=== PATIENT | male | born 1985 | race Hispanic/Latino ===

== ENCOUNTER 2017-08-08 17:22 | Inpatient (IN) | payer OTHER ==
[2017-08-08 17:22] VITALS: BMI 19.8
--- NOTE | 2017-08-08 18:16 | ED PDOC ---
Arrival/HPI - General Chief Complaint: Chest Pain Time Seen by Provider: 08/08/17 17:40 Historian: Patient - History of Present Illness Narrative History of Present Illness (Text): 08/08/17 18:12 A 31 year old male presents to the emergency department complaining of left sided chest pain approximately 30 minutes prior to arrival. Patient notes shortness of breath but denies any fever, chills, nausea, vomiting, abdominal pain or any other complaints. Patient denies history of pneumothorax. Time/Duration: 1/2 hour Symptom Course: Unchanged Quality: Other Context: Home Past Medical History - Provider Review Nursing Documentation Reviewed: Yes - Tetanus Immunization Tetanus Immunization: Unknown - Past Medical History Past Medical History: No Previous - Musculoskeletal/Rheumatological Other/Comment: Left Leg Sprain - Psychiatric Hx Depression: No Hx Emotional Abuse: No Hx Physical Abuse: No Hx Substance Use: No - Past Surgical History Past Surgical History: No Previous - Surgical History Other/Comment: Oral - Anesthesia Hx Anesthesia: Yes Hx Anesthesia Reactions: No Hx Malignant Hyperthermia: No - Suicidal Assessment Feels Threatened In Home Enviroment: No Family/Social History - Physician Review Nursing Documentation Reviewed: Yes Family/Social History: No Known Family HX Smoking Status: Light Smoker < 10 Cigarettes Daily Hx Alcohol Use: Yes Frequency of alcohol use: Socially Hx Substance Use: No Allergies/Home Meds Allergies/Adverse Reactions: Allergies No Known Allergies Allergy (Verified 11/05/16 12:48) Home Medications: Home Meds Medication Instructions Recorded Confirmed D-Methorphan/PE/Acetaminophen 236 ml PO PRN PRN 11/05/16 11/05/16 [Vicks Dayquil Cold & Flu 236 ml] Review of Systems - Physician Review All systems were reviewed & negative as marked: Yes - Review of Systems Constitutional: absent: Fevers, Night Sweats Respiratory: SOB Cardiovascular: Chest Pain Gastrointestinal: absent: Abdominal Pain, Nausea, Vomiting Physical Exam Vital Signs Reviewed: Yes Vital Signs Temp Pulse Resp BP Pulse Ox 08/08/17 20:28 72 16 106/69 99 08/08/17 19:06 88 20 128/82 99 08/08/17 18:25 93 H 17 131/79 98 08/08/17 17:34 92 H 20 121/83 100 08/08/17 17:22 98.5 F 73 18 127/77 98 Temperature: Afebrile Blood Pressure: Normal Pulse: Regular Respiratory Rate: Normal Appearance: Positive for: Non-Toxic, Uncomfortable Pain Distress: Moderate Mental Status: Positive for: Alert and Oriented X 3 - Systems Exam Head: Present: Atraumatic, Normocephalic Pupils: Present: PERRL Extroacular Muscles: Present: EOMI Conjunctiva: Present: Normal Mouth: Present: Moist Mucous Membranes Neck: Present: Normal Range of Motion Respiratory/Chest: Present: Respiratory Distress. No: Accessory Muscle Use Cardiovascular: Present: Regular Rate and Rhythm, Normal S1, S2. No: Murmurs Abdomen: Present: Normal Bowel Sounds. No: Tenderness, Distention, Peritoneal Signs Back: Present: Normal Inspection Upper Extremity: Present: Normal Inspection. No: Cyanosis, Edema Lower Extremity: Present: Normal Inspection. No: Edema Neurological: Present: GCS=15, CN II-XII Intact, Speech Normal Skin: Present: Warm, Dry, Normal Color. No: Rashes Psychiatric: Present: Alert, Oriented x 3, Normal Insight, Normal Concentration Medical Decision Making ED Course and Treatment: 08/08/17 18:12 Impression: A 31 year old male with left sided chest pain and shortness of breath. Differential Diagnosis included but are not limited to: Pneumothorax Plan: -- Chest xray -- EKG -- Labs -- Toradol -- Reassess and disposition Progress Notes: Case discussed with neurosurgical nurse practitioner, states he will evaluate patient at bedside. Report Date : 08/08/2017 18:35:59 Procedure: Chest xray Dictator : Ambar Cheney MD IMPRESSION: Hyperinflation. Right peritracheal opacity of unclear significance, possibly due to tortuous vasculature exaggerated by patient obliquity. 08/08/17 19:36 Case discussed with surgeon dehydrogenation supervisor Dr. Rodriguez, who refuses to accept patient to his service. Dr. Zelaya left prior to knowing this information. 08/08/17 20:[address] Cole managed by medical residents. ICU consult obtained dr. Moseley at bedside cleared for ICU 08/08/17 21:04 - Critical Care Critical Care Minutes: 45 minutes Narrative Critical Care (Text): 08/08/17 20:07 seen on arrival due to suspected pneumothorax chest x-ray revealed the same. Surgical consultation was obtained and the surgery residents put him in a 7 [place] chest tube at the fourth intercostal space. With good resolution of the chest tube I supervised doing conscious sedation using ketamine. An ICU consultation was obtained with Dr. Moseley. - Lab Interpretations Lab Results: 08/08/17 18:25 08/08/17 18:25 Lab Results 08/08/17 18:25: Sodium 140, Potassium 3.9, Chloride 105, Carbon Dioxide 23, Anion Gap 16, BUN 15, Creatinine 1.0, Est GFR ( Amer) > 60, Est GFR (Non- Af Amer) > 60, Random Glucose 88, Calcium 9.8 08/08/17 18:25: PT 11.0, INR 1.02 08/08/17 18:25: WBC 9.4, RBC 4.99, Hgb 14.2, Hct 41.5 L, MCV 83.2, MCH 28.5, MCHC 34.2, RDW 13.4, Plt Count 262, MPV 8.9, Gran % 50.7, Lymph % (Auto) 38.5 H , [place] % (Auto) 8.3 H, Eos % (Auto) 2.0, Baso % (Auto) 0.5, Gran # 4.78, Lymph # 3.6 H, [place] # 0.8 H, Eos # 0.2, Baso # 0.05 I have reviewed the lab results: Yes - RAD Interpretation Narrative RAD Interpretations (Text): 08/08/17 21:03 chest x-ray shows a small to moderate-sized pneumothorax on the left lung field. Post chest tube placement shows full inflation. Radiology Orders: 08/08/17 17:45 CHEST TWO VIEWS (PA/LAT) [RAD] Stat 08/08/17 18:53 X-RAY [CHEST PORTABLE] [RAD] Stat 08/09/17 06:00 CXR [CHEST PORTABLE] [RAD] DAILY 08/10/17 06:00 CXR [CHEST PORTABLE] [RAD] DAILY 08/11/17 06:00 CXR [CHEST PORTABLE] [RAD] DAILY - EKG Interpretation EKG Interpretation (Text): 08/08/17 20:17 no signifcant abnormalties. Interpreted by ED Physician: Yes Type: 12 lead EKG Comparison: No previous EKG avail. - Medication Orders Current Medication Orders: Acetaminophen (Tylenol 325mg Tab) 650 mg PO Q4 PRN PRN Reason: Fever >100.4 F Ketorolac Tromethamine (Toradol) 15 mg IVP Q4 PRN PRN Reason: Pain, severe (8-10) Oxycodone/Acetaminophen (Percocet 5/325 Mg Tab) 2 tab PO Q4 PRN PRN Reason: Pain, moderate (4-7) Stop: 08/11/17 20:01 Discontinued Medications Hydromorphone HCl (Dilaudid) 2 mg IVP STAT STA Stop: 08/08/17 18:23 Ketamine HCl (Ketalar) 100 mg IV ONCE ONE Stop: 08/08/17 18:54 Ketorolac Tromethamine (Toradol) 30 mg IVP STAT STA Stop: 08/08/17 18:14 Last Admin: 08/08/17 18:31 Dose: 30 mg MAR Pain Assessment Document 08/08/17 18:31 CONRAD (Rec: 08/08/17 18:34 [id number] Pain Reassessment Is this a pain reassessment? Yes Sleep Is patient sleeping during reassessment? No Presence of Pain Presence of Pain Yes Pain Scale Used Pain Scale Used Numeric Location Left, Right or Bilateral Left Pain Location Body Site Chest Description Description Sharp Intensity of Pain at present 10 IVP Administration Document 08/08/17 18:31 CONRAD (Rec: 08/08/17 18:34 [id number]) Charges for Administration # of IVP Administrations 1 - Procedure PROCEDURE NOTE (Text): 08/08/17 21:00 conscious sedation procedure: ASA class I and no medical issues and good anticipated oral airway Mallampati class. 50 mg of ketamine IV was given for procedural sedation chest tube. patient had short transient periods of apnea which responded to verbal stimuli, and no desaturations. patient was monitored during the procedure and tolerated the procedure well there were no major events no emergence phenomenon. - Scribe Statement The provider has reviewed the documentation as recorded by the Michael Smith Provider Scribe Attestation: All medical record entries made by the Scribe were at my direction and personally dictated by me. I have reviewed the chart and agree that the record accurately reflects my personal performance of the history, physical exam, medical decision making, and the department course for this patient. I have also personally directed, reviewed, and agree with the discharge instructions and disposition. Disposition/Present on Arrival - Present on Arrival Any Indicators Present on Arrival: No History of DVT/PE: No History of Uncontrolled Diabetes: No Urinary Catheter: No History of Decub. Ulcer: No History Surgical Site Infection Following: None - Disposition Have Diagnosis and Disposition been Completed?: Yes Diagnosis: Pneumothorax Disposition: HOSPITALIZED Disposition Time: 20:08 Patient Plan: Admission Patient Problems: Current Active Problems Problem Status Onset Pneumothorax Acute Condition: SERIOUS
[2017-08-08] MEDS ORDERED: HYDROmorphone 2 mg/ml ISec IVP STA (18:22)
[2017-08-08] MEDS ORDERED: Ketamine 10 mg/ml Inj (20 ml) ONE (18:23)
--- NOTE | 2017-08-08 18:37 | RAD ---
HISTORY: chest pain COMPARISON: Chest x-ray performed 11/05/16 TECHNIQUE: Chest PA and lateral FINDINGS: LUNGS: Hyperinflation. Right peritracheal opacity of unclear significance, possibly due to tortuous vasculature exaggerated by patient obliquity. Please note that chest x-ray has limited sensitivity for the detection of pulmonary masses. PLEURA: No significant pleural effusion identified. No definite pneumothorax . CARDIOVASCULAR: The cardiomediastinal silhouette appears within normal limits of size. OSSEOUS STRUCTURES: No acute osseous abnormality identified. VISUALIZED UPPER ABDOMEN: Unremarkable. OTHER FINDINGS: None. IMPRESSION: Hyperinflation. Right peritracheal opacity of unclear significance, possibly due to tortuous vasculature exaggerated by patient obliquity.
[2017-08-08] MEDS ORDERED: Midazolam 2 MG/2 ML VIAL ONE (18:38)
[2017-08-08 18:43] LABS: BASO # 0.05 K/mm3 (0.0-2.0); BASO % 0.5 % (0.0-3.0); EOS # 0.2 (0.0-0.7); GRAN # 4.78 (1.4-6.5); GRAN % 50.7 % (50.0-68.0); HEMATOCRIT 41.5 % (42.0-52.0); LYMPH # 3.6 (1.2-3.4); LYMPH % 38.5 % (22.0-35.0); MEAN CELL VOLUME 83.2 fl (80.0-105.0); MEAN CORPUSCULAR HEMOGLOBIN 28.5 pg (25.0-35.0); MEAN CORPUSCULAR HGB CONC 34.2 g/dl (31.0-37.0); MEAN PLATELET VOLUME 8.9 fl (7.0-11.0); MONO # 0.8 (0.1-0.6); MONO % 8.3 % (1.0-6.0); RED CELL DISTRIBUTION WIDTH 13.4 % (11.5-14.5); WHITE BLOOD COUNT 9.4 10^3/ul (4.5-11.0)
[2017-08-08 18:49] LABS: INR 1.02 (0.93-1.08)
[2017-08-08 18:50] LABS: BLOOD UREA NITROGEN 15 mg/dL (7-21); CALCIUM 9.8 mg/dL (8.4-10.5); CARBON DIOXIDE 23 mmol/L (21-33); CHLORIDE 105 mmol/L (98-107); GFR AFRICAN-AMERICAN > 60; GLUCOSE,RANDOM 88 mg/dL (70-110); POTASSIUM 3.9 mmol/L (3.6-5.0); SODIUM 140 mmol/L (132-148)
[2017-08-08] MEDS ORDERED: Ketamine 10 mg/ml Inj (20 ml) IV ONE (18:53)
--- NOTE | 2017-08-08 19:51 | CP.PCM.CON ---
History of Present Illness - History of Present Illness History of Present Illness: Surgery 31 M with no sig PMH presents with L chest discomfort that started today. Pain was sudden and doesn't radiate. Pt also reports SOB. Denies F/C/n/V/D/trauma to chest. Surgery is consulted to evaluate for pneumothorax. CXR showed 15% L pneumothorax 2.5cm away from the chest wall. Pt consented for bedside chest tube insertion. Pt tolerated the procedure well and post CXR showed resolusion of pneumothorax. Review of Systems - Review of Systems Review of Systems: See HPI Past Patient History - Tetanus Immunizations Tetanus Immunization: Unknown - Past Social History Smoking Status: Light Smoker < 10 Cigarettes Daily - MUSCULOSKELETAL/RHEUMATOLOGICAL Other/Comment: Left Leg Sprain - PSYCHIATRIC Hx Depression: No Hx Emotional Abuse: No Hx Physical Abuse: No Hx Substance Use: No - SURGICAL HISTORY Other/Comment: Oral - ANESTHESIA Hx Anesthesia: Yes Hx Anesthesia Reactions: No Hx Malignant Hyperthermia: No Meds Allergies/Adverse Reactions: Allergies Allergy/AdvReac Type Severity Reaction Status Date / Time No Known Allergies Allergy Verified 11/05/16 12:48 - Medications Medications: Current Medications Acetaminophen (Tylenol 325mg Tab) 650 mg PO Q4 PRN PRN Reason: Fever >100.4 F Ketorolac Tromethamine (Toradol) 15 mg IVP Q4 PRN PRN Reason: Pain, severe (8-10) Oxycodone/Acetaminophen (Percocet 5/325 Mg Tab) 2 tab PO Q4 PRN PRN Reason: Pain, moderate (4-7) Stop: 08/11/17 20:01 Physical Exam - Constitutional Appears: Non-toxic - Head Exam Head Exam: ATRAUMATIC, NORMAL INSPECTION, NORMOCEPHALIC - Eye Exam Eye Exam: EOMI, Normal appearance, PERRL Pupil Exam: NORMAL ACCOMODATION, PERRL - ENT Exam ENT Exam: Mucous Membranes Moist, Normal Exam - Neck Exam Neck exam: Positive for: Normal Inspection - Respiratory Exam Respiratory Exam: Chest Wall Tenderness. absent: Respiratory Distress - Cardiovascular Exam Cardiovascular Exam: REGULAR RHYTHM, +S1, +S2 - GI/Abdominal Exam GI & Abdominal Exam: Normal Bowel Sounds, Soft. absent: Distended, Tenderness - Extremities Exam Extremities exam: Positive for: normal inspection - Back Exam Back exam: NORMAL INSPECTION - Neurological Exam Neurological exam: Alert, CN II-XII Intact, Normal Gait, Oriented x3, Reflexes Normal - Psychiatric Exam Psychiatric exam: Normal Affect, Normal Mood - Skin Skin Exam: Dry, Intact, Normal Color, Warm Results - Vital Signs Recent Vital Signs: Last Vital Signs Temp 98.5 F 08/08/17 17:22 Pulse 88 08/08/17 19:06 Resp 20 08/08/17 19:06 BP 128/82 08/08/17 19:06 Pulse Ox 99 08/08/17 19:06 - Labs Result Diagrams: 08/08/17 18:25 08/08/17 18:25 Labs: Laboratory Results - last 24 hr 08/08/17 08/08/17 08/08/17 18:25 18:25 18:25 WBC 9.4 RBC 4.99 Hgb 14.2 Hct 41.5 L MCV 83.2 MCH 28.5 MCHC 34.2 RDW 13.4 Plt Count 262 MPV 8.9 Gran % 50.7 Lymph % (Auto) 38.5 H [place] % (Auto) 8.3 H Eos % (Auto) 2.0 Baso % (Auto) 0.5 Gran # 4.78 Lymph # 3.6 H [place] # 0.8 H Eos # 0.2 Baso # 0.05 PT 11.0 INR 1.02 Sodium 140 Potassium 3.9 Chloride 105 Carbon Dioxide 23 Anion Gap 16 BUN 15 Creatinine 1.0 Est GFR ( Amer) > 60 Est GFR (Non-Af Amer) > 60 Random Glucose 88 Calcium 9.8 Assessment & Plan - Assessment and Plan (Free Text) Assessment: L pneumothorax POD 0 s/p 7fr chest tube insertion -Keep chest tube on low cont suction -Pain control -Encourage ambulation /IS -Daily CXR STEPHANIE Rodriguez
--- NOTE | 2017-08-08 19:56 | PCM.PROC ---
Procedures Attestation:: I certify that I have explained the specified Operation(s) or Procedure(s), risks, benefits and reasonable alternatives to the Patient and/or other person responsible. The opportunity was given to ask questions and all questions answered - Chest Tube Chest Tube Location: Mid-Axillary Left Chest Tube Procedure: Chlorhexidine Tube Sutured to Skin: Yes Sterile Dressing Applied: Yes Anesthesia: Lidocaine 1% Volume Anesthetic (mls): 10 Incision Made With: #11 blade Post Procedure: sutured to skin, sterile dressing applied, air occlusive dressing Leach of Air [place]: Yes Tube Drainage: none Post Procedure CXR?: Yes Patient Tolerated Procedure: Yes
[2017-08-08] MEDS ORDERED: Sodium Chloride 0.9% 1,000 ML IV STA (22:05)
[2017-08-08] MEDS: Oxycodone/Acetaminophen 5/325 mg Tab PO PRN (22:11)
[2017-08-08] MEDS: Sodium Chloride 0.9% 1,000 ML IV SCH (23:30)
--- NOTE | 2017-08-09 01:41 | CP.PCM.HP ---
<Alejo Parks - Last Filed: 08/09/17 05:22> History of Present Illness - History of Present Illness History of Present Illness: Chief Complaint Shortness of breath and chest pain HPI Patient is a 31 year old white male who with no significant past medical history who presents to [facility] ED on 08/08/17 with complaints of shortness of breath and sharp chest pain. Patient states he was walking when all of a sudden he experienced a sharp chest pain which caused him to be short of breath. He states the pain was exacerbated with walking, talking, and stretching. Nothing relieved the pain or dyspnea. Patient states this is the first time he has experienced such a feeling. He rated the chest pain a 10/10 and states it protruded all throughout the left side of his chest. In ED chest tube was successfully placed. Patient states with chest tube placement breathing Patient denies n/v/d/f/c, dizziness, weakness, and headache. PMD: None PSHx: None SHx: ppd cigarettes, social alcohol consumption, denies illicit drug use FMHx: Non-contributory Allergies: NKDA Medications: none Review of Systems: Constitutional: pt denies fever, chills, generalized weakness ENT: pt denies dysphagia, otalgia, hearing deficit, rhinorrhea Eyes: pt denies sudden loss of vision, diplopia, blurred vision MSK: pt denies muscle stiffness, joint pain, extremity cramping Cardio: heart murmur Pulm: pt denies cough, hemoptysis, wheeze GI: pt denies loss of appetite, abdominal pain, constipation, melena, n/v/d : pt denies burning on urination, urinary frequency, hematuria, urinary urgency Neuro: pt denies paresis, paresthesia, dizziness, gayle, numbness, tingling Psych: pt denies anxiety, depression, mood changes Phys Exam: VS as below Constitutional: a&o x 4, nad Head and Neck: neck supple, no jvd, trachea midline, carotid midline, no cervical/head mass Eyes: lauren, nonicteric sclera, eom intact ENT: auditory acuity grossly intact, throat not congested, no nasal deformity Cardio: rrr, no m/r/g, no carotid bruit, nml s1, s2 Pulm: no accessory muscle use, equal nml breath sounds bilaterally, clear to auscultation B/L, chest tube placement on left side Abd: s/nt/nd, nbs x 4 q, no palpable masses Derm: no rashes, no ulcers, no lesions Extr: no edema, no cyanosis, no calf tenderness, no lesions, no varicosities Neuro: cn II-XII grossly intact, ue and le 5/5 muscle strength bilaterally, no los ue, le bilaterally and core Present on Admission - Present on Admission Any Indicators Present on Admission: No Past Patient History - Tetanus Immunizations Tetanus Immunization: Unknown - Past Social History Smoking Status: Heavy Smoker > 10 Cigarettes Daily - CARDIAC Hx Cardiac Disorders: No - PULMONARY Hx Respiratory Disorders: No - NEUROLOGICAL Hx Neurological Disorder: No - HEENT Hx HEENT Problems: No - RENAL Hx Chronic Kidney Disease: No - ENDOCRINE/METABOLIC Hx Endocrine Disorders: No - HEMATOLOGICAL/ONCOLOGICAL Hx Blood Disorders: No - INTEGUMENTARY Hx Dermatological Problems: No - MUSCULOSKELETAL/RHEUMATOLOGICAL Hx Musculoskeletal Disorders: No Hx Falls: No - GASTROINTESTINAL Hx Gastrointestinal Disorders: No - GENITOURINARY/GYNECOLOGICAL Hx Genitourinary Disorders: No - PSYCHIATRIC Hx Psychophysiologic Disorder: No Hx Substance Use: Yes - SURGICAL HISTORY Hx Surgeries: No - ANESTHESIA Hx Anesthesia: Yes Hx Anesthesia Reactions: No Hx Malignant Hyperthermia: No Meds Allergies/Adverse Reactions: Allergies Allergy/AdvReac Type Severity Reaction Status Date / Time No Known Allergies Allergy Verified 11/05/16 12:48 Results - Vital Signs Recent Vital Signs: Last Vital Signs Temp 98.6 F 08/08/17 22:43 Pulse 62 08/08/17 22:43 Resp 18 08/08/17 22:43 BP 106/71 08/08/17 22:43 Pulse Ox 99 08/08/17 20:28 - Labs Result Diagrams: 08/08/17 18:25 08/08/17 18:25 Assessment & Plan - Assessment and Plan (Free Text) Plan: Assessment 31 year old male with shortness of breath and chest pain found to have left sided pneumothorax Plan - CBC, BMP ordered for morning labs - Continue to monitor vitals - F/U with surgical recs <Hardy Moseley MD - Last Filed: 08/14/17 10:47> Results - Vital Signs Recent Vital Signs: Last Vital Signs Temp 98 F 08/11/17 11:59 Pulse 57 L 08/11/17 11:59 Resp 16 08/11/17 11:59 BP 112/66 08/11/17 11:59 Pulse Ox 98 08/11/17 06:00 - Labs Result Diagrams: 08/10/17 06:00 08/10/17 06:00 Attending/Attestation - Attestation I have personally seen and examined this patient.: Yes I have fully participated in the care of the patient.: Yes I have reviewed all pertinent clinical information: Yes Notes (Text): -I agree with the above H&P completed by the resident physician with the following additions and/or changes: -Pt is a 31 year old man with no significant medical history being admitted for left-sided primary spontaneous pneumothorax. Surgery has already placed a chest tube in the ED. Machine Presser evaluated him and doesn't feel that he requires ICU level of care at this time. Will continue with supplemental O2, pain control and f/u further surgery consult rec's.
[2017-08-09] MEDS: Oxycodone/Acetaminophen 5/325 mg Tab PO PRN ×2 (03:12→07:48)
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
[2017-08-09] MEDS ORDERED: Sodium Chloride 0.9% 1,000 ML IV STA (05:06)
[2017-08-09 06:36] LABS: BASO # 0.03 K/mm3 (0.0-2.0); BASO % 0.3 % (0.0-3.0); EOS # 0.3 (0.0-0.7); EOS % 2.9 % (1.5-5.0); GRAN # 5.38 (1.4-6.5); HEMATOCRIT 36.7 % (42.0-52.0); LYMPH # 2.8 (1.2-3.4); LYMPH % 29.5 % (22.0-35.0); MEAN CELL VOLUME 85.9 fl (80.0-105.0); MEAN CORPUSCULAR HEMOGLOBIN 28.1 pg (25.0-35.0); MEAN CORPUSCULAR HGB CONC 32.7 g/dl (31.0-37.0); MEAN PLATELET VOLUME 8.8 fl (7.0-11.0); MONO % 10.3 % (1.0-6.0); RED CELL DISTRIBUTION WIDTH 13.9 % (11.5-14.5); WHITE BLOOD COUNT 9.4 10^3/ul (4.5-11.0)
[2017-08-09 06:37] LABS: BLOOD UREA NITROGEN 14 mg/dL (7-21); CALCIUM 8.1 mg/dL (8.4-10.5); CARBON DIOXIDE 26 mmol/L (21-33); CHLORIDE 111 mmol/L (95-110); GFR AFRICAN-AMERICAN > 60; GLUCOSE,RANDOM 80 mg/dL (70-110); POTASSIUM 3.9 mmol/L (3.6-5.0); SODIUM 141 mmol/L (132-148)
--- NOTE | 2017-08-09 08:12 | CP.PCM.PN ---
Subjective - Date & Time of Evaluation Date of Evaluation: 08/09/17 Time of Evaluation: 08:09 - Subjective Subjective: Surgery Progress Note for Dr. Rodriguez HPI: Patient seen and examined at bedside. Doing well. Says it is much easier to breath. Hurts to cough. States that the chest pain and SOB started when he was working at his computer. Denies N/V/F/Chills. Objective - Vital Signs/Intake and Output Vital Signs (last 24 hours): Temp Pulse Resp BP Pulse Ox 98.5 F 51 L 20 105/63 98 08/09/17 06:00 08/09/17 07:34 08/09/17 07:34 08/09/17 07:34 08/09/17 06:00 Intake and Output: 08/09/17 08/09/17 06:59 18:59 Intake Total 1980 Output Total 350 Balance 1630 - Medications Medications: Current Medications Acetaminophen (Tylenol 325mg Tab) 650 mg PO Q4 PRN PRN Reason: Fever >100.4 F Famotidine (Pepcid) 20 mg IVP DAILY BA[facility]A Sodium Chloride (Sodium Chloride 0.9%) 1,000 mls @ 100 mls/hr IV .Q10H BA[facility]ISTA Last Admin: 08/08/17 23:30 Dose: 100 mls/hr Ketorolac Tromethamine (Toradol) 15 mg IVP Q4 PRN PRN Reason: Pain, severe (8-10) Last Admin: 08/08/17 21:48 Dose: 15 mg Oxycodone/Acetaminophen (Percocet 5/325 Mg Tab) 2 tab PO Q4 PRN PRN Reason: Pain, moderate (4-7) Stop: 08/11/17 20:01 Last Admin: 08/09/17 07:48 Dose: 2 tab - Labs Labs: 08/09/17 06:15 08/09/17 06:15 PT 11.0 Seconds (9.9-11.8) 08/08/17 18:25 INR 1.02 (0.93-1.08) 08/08/17 18:25 - Constitutional Appears: Well, Non-toxic, No Acute Distress - Head Exam Head Exam: ATRAUMATIC, NORMAL INSPECTION, NORMOCEPHALIC - Eye Exam Eye Exam: EOMI - ENT Exam ENT Exam: Mucous Membranes Moist - Respiratory Exam Respiratory Exam: Clear to Ausculation Bilateral, NORMAL BREATHING PATTERN Additional comments: No leak present when asked to cough. dressing changed at bedside, c/d/i - Cardiovascular Exam Cardiovascular Exam: REGULAR RHYTHM - GI/Abdominal Exam GI & Abdominal Exam: Soft, Normal Bowel Sounds. absent: Distended, Tenderness - Extremities Exam Extremities Exam: absent: Joint Swelling, Tenderness - Back Exam Back Exam: absent: CVA tenderness (L), CVA tenderness (R) - Neurological Exam Neurological Exam: Alert, Awake, Oriented x3 - Psychiatric Exam Psychiatric exam: Normal Affect, Normal Mood - Skin Skin Exam: Dry, Intact, Normal Color, Warm Assessment and Plan - Assessment and Plan (Free Text) Assessment: 31M with a Spontaneous Pneumo S/p chest tube POD 1 Plan: * repeat CXR is much improved * dressing changed today * cont pleuravac on suction * Further reccs per Dr. Michael Higgins PGY1
--- NOTE | 2017-08-09 08:43 | RAD ---
HISTORY: post chest tube COMPARISON: Earlier same day FINDINGS: LUNGS: A small caliber chest tube is seen in the left upper lobe. There is re-expansion of the lung PLEURA: No significant pleural effusion identified, no pneumothorax apparent. CARDIOVASCULAR: Normal. OSSEOUS STRUCTURES: No significant abnormalities. VISUALIZED UPPER ABDOMEN: Normal. OTHER FINDINGS: None. IMPRESSION: Resolved left-sided pneumothorax after chest tube placement
[2017-08-09] MEDS: Sodium Chloride 0.9% 1,000 ML IV SCH ×2 (08:53→18:22)
[2017-08-09] MEDS ORDERED: Sodium Chloride 0.9% 1,000 ML IV SCH (12:08)
[2017-08-09] MEDS ORDERED: Oxycodone/Acetaminophen 5/325 mg Tab PO PRN ×2 (13:11→17:58)
--- NOTE | 2017-08-09 13:28 | RAD ---
HISTORY: L chest tube COMPARISON: 08/08/2017 FINDINGS: LUNGS: The previously referenced small caliber left-sided chest to tip projects over the left upper lobe near the left posterolateral 3rd rib Clear lungs PLEURA: No significant pleural effusion identified,. The left pleural reflection of the minute left pneumothorax is faintly perceived. The left pleural reflection is approximately 1 to 2 mm from the extreme left lung apex. . CARDIOVASCULAR: Normal. OSSEOUS STRUCTURES: No significant abnormalities. VISUALIZED UPPER ABDOMEN: Normal. OTHER FINDINGS: None. IMPRESSION: Left chest tube and left pleural reflection and 1 to 2 mm left apical pneumothorax as above.
[2017-08-09 15:31] LABS: TROPONIN I < 0.01 ng/mL
[2017-08-09] MEDS ORDERED: DOPamine 400mg/250ml D5W 400 MG/250 ML BAG IV PRN (17:09)
--- NOTE | 2017-08-09 18:46 | CON ---
CONSULT SERVICE: Cardiology. REASON FOR CONSULTATION: Bradycardia, hypotension, status post pneumothorax, status post chest tube. BRIEF CLINICAL HISTORY: This is a 31-year-old male with no significant past medical history came to the emergency room on 08/08/2017 with severe excruciating, sharp pain in the left side, secondary to spontaneous pneumothorax, status post chest tube. The patient's admitting EKG was normal sinus, now patient is bradycardic and hypotension, cardiac consult was called. The patient denies any chest pain, shortness of breath, or palpitation prior to this event. The patient was working in the computer and suddenly he felt sharp pain, he thought that he twisted his body, but this pain did not get better, so the patient came to the emergency room, status post chest tube. PAST MEDICAL HISTORY: Nothing significant. CURRENT MEDICATIONS: None. SOCIAL HISTORY: Smokes half a pack a day. Socially drinks 2 cans of beer at the most in the weekend, but smokes pot, last smoking a week ago. FAMILY HISTORY: Noncontributory. REVIEW OF SYSTEMS: As per HPI. PHYSICAL EXAMINATION VITAL SIGNS: Temperature afebrile, heart rate 58, blood pressure 86/47. HEENT: PERRLA. Extraocular muscles intact. NECK: Supple. No carotid bruits or thyromegaly. CHEST: Clear to auscultation. HEART: S1 and S2 regular. ABDOMEN: Soft. EXTREMITIES: Clubbing and cyanosis negative. LABORATORY DATA: Blood workup as follows, WBC 9.5, hemoglobin 12, hematocrit 36.7 and platelet count 219. Chemistry shows sodium of 141, potassium of 3.9, chloride 111, carbon dioxide of 26, anion gap of 8, BUN of 14, and creatinine of 0.9. Troponin 0.01. EKG shows normal sinus and no acute ST-T changes noted. IMPRESSION: Spontaneous pneumothorax, status post chest tube, left sided; hypotension; bradycardia. RECOMMENDATIONS: We will start low dose of dopamine, continue IV fluid, get echo to assess LV function, also get tox screen. We will follow with you. Thank you Dr. Farfan for providing me the opportunity in taking care of the patient. Hemal Balderrama MD
[2017-08-10 06:31] LABS: BASO # 0.05 K/mm3 (0.0-2.0); BASO % 0.5 % (0.0-3.0); EOS # 0.2 (0.0-0.7); EOS % 2.1 % (1.5-5.0); GRAN # 6.9 (1.4-6.5); GRAN % 64.5 % (50.0-68.0); HEMATOCRIT 41.8 % (42.0-52.0); LYMPH # 2.6 (1.2-3.4); LYMPH % 24.7 % (22.0-35.0); MEAN CELL VOLUME 85.1 fl (80.0-105.0); MEAN CORPUSCULAR HEMOGLOBIN 28.3 pg (25.0-35.0); MEAN CORPUSCULAR HGB CONC 33.3 g/dl (31.0-37.0); MEAN PLATELET VOLUME 9.1 fl (7.0-11.0); MONO # 0.9 (0.1-0.6); MONO % 8.2 % (1.0-6.0); RED CELL DISTRIBUTION WIDTH 13.7 % (11.5-14.5); WHITE BLOOD COUNT 10.7 10^3/ul (4.5-11.0)
[2017-08-10 06:40] LABS: ALB/GLOB RATIO 1.3 (1.1-1.8); ALKALINE PHOSPHATASE 70 U/L (38-126); ALT/SGPT 21 U/L (7-56); AST/SGOT 26 U/L (17-59); BILIRUBIN,TOTAL 0.4 mg/dL (0.2-1.3); BLOOD UREA NITROGEN 7 mg/dL (7-21); CALCIUM 8.8 mg/dL (8.4-10.5); CARBON DIOXIDE 27 mmol/L (21-33); CHLORIDE 107 mmol/L (98-107); CHOLESTEROL 135 mg/dL (130-200); GFR AFRICAN-AMERICAN > 60; GLUCOSE,RANDOM 105 mg/dL (70-110); MAGNESIUM 1.9 mg/dL (1.7-2.2); PHOSPHOROUS 2.5 mg/dL (2.5-4.5); POTASSIUM 3.8 mmol/L (3.6-5.0); SODIUM 142 mmol/L (132-148); TOTAL PROTEIN 6.6 g/dL (5.8-8.3)
[2017-08-10 06:57] LABS: TROPONIN I < 0.01 ng/mL
--- NOTE | 2017-08-10 07:21 | CP.PCM.PN ---
<Ritchie Cannon - Last Filed: 08/10/17 11:30> Subjective - Date & Time of Evaluation Date of Evaluation: 08/10/17 Time of Evaluation: 09:30 - Subjective Subjective: Subjective: Patient seen and examined at bedside. Resting comfortably in bed. No acute overnight events. Patients chest pain and SOB have improved from baseline. Admits to mild chest discomfort near chest tube site. Offers no new complaints at this time. Denies f/c/cp/sob/abdominal pain/n/v/d/c/urinary sxs. Physical Examination: - Constitutional Appears: Well, Non-toxic, No Acute Distress - Head Exam Head Exam: ATRAUMATIC, NORMAL INSPECTION, NORMOCEPHALIC - Eye Exam Eye Exam: EOMI - ENT Exam ENT Exam: Mucous Membranes Moist - Respiratory Exam Respiratory Exam: Clear to Ausculation Bilateral, NORMAL BREATHING PATTERN Additional comments: No leak present when asked to cough. dressing is c/d/i, chest tube is clamped - Cardiovascular Exam Cardiovascular Exam: REGULAR RHYTHM - GI/Abdominal Exam GI & Abdominal Exam: Soft, Normal Bowel Sounds. absent: Distended, Tenderness - Extremities Exam Extremities Exam: absent: no clubbing, cyanosis, edema - Back Exam Back Exam: absent: CVA tenderness (L), CVA tenderness (R) - Neurological Exam Neurological Exam: Alert, Awake, Oriented x3 - Psychiatric Exam Psychiatric exam: Normal Affect, Normal Mood Assessment and Plan: Patient is a 31 year old male with past medical history of tobacco abuse who was admitted for evaluation and treatment of chest pain and SOB. Spontaneous Pneumothorax - S/p chest tube POD 2 - Repeat CXR reviewed and deemed to be much improved - chest tube managemnt as per surgery team, clamped in AM - encourage incentive spirometry use - awaiting pulmonology consult Asymptomatic Bradycardia - Patients low-normal BP noted - Dr. Balderrama is consulted- recommendations appreciated - Continue patient on dopamine drip - ECHO ordered and pending Hypotension - 90s/50s noted - continue IVF NS @ 100 Tobacco Abuse - encouraged smoking cessation, education on danger of smoking/chewing tobacco products offered - nicotine patch offfered- patient does not want at this time Anemia - Hgb improving to 13.9 - monitor closely via CBC in AM Prophylaxis - GI- famotidine - DVT- scds Patient seen, case discussed with, and plan approved by attending physician, Dr. Farfan. Objective - Vital Signs/Intake and Output Vital Signs (last 24 hours): Temp Pulse Resp BP Pulse Ox 98.5 F 65 20 94/55 L 96 08/10/17 05:58 08/10/17 05:58 08/10/17 05:58 08/10/17 05:58 08/10/17 05:58 Intake and Output: 08/10/17 08/10/17 06:59 18:59 Intake Total 300 Output Total 4700 Balance -4400 - Medications Medications: Current Medications Acetaminophen (Tylenol 325mg Tab) 650 mg PO Q4 PRN PRN Reason: Fever >100.4 F Last Admin: 08/09/17 15:03 Dose: 650 mg Famotidine (Pepcid) 20 mg PO HS [facility]ISTA Dopamine HCl/Dextrose (Dopamine 400mg/250ml D5w) 400 mg in 250 mls @ 5.603 mls/ hr IV .Q24H PRN; Protocol; 2.5 MCG/KG/MIN PRN Reason: TITRATE PER MD ORDER Last Admin: 08/09/17 17:47 Dose: 2.5 mcg/kg/min, 5.603 mls/hr Sodium Chloride (Sodium Chloride 0.9%) 1,000 mls @ 100 mls/hr IV .Q10H BAUTISTA Last Admin: 08/09/17 18:22 Dose: 100 mls/hr Ketorolac Tromethamine (Toradol) 15 mg IVP Q4 PRN PRN Reason: Pain, severe (8-10) Last Admin: 08/08/17 21:48 Dose: 15 mg Ondansetron HCl (Zofran Inj) 4 mg IVP Q8H PRN PRN Reason: Nausea/Vomiting Last Admin: 08/09/17 19:01 Dose: 4 mg Oxycodone/Acetaminophen (Percocet 5/325 Mg Tab) 1 tab PO Q6H PRN PRN Reason: Pain, moderate (4-7) Stop: 08/11/17 19:33 Last Admin: 08/10/17 02:44 Dose: 1 tab - Labs Labs: 08/10/17 06:00 08/10/17 06:00 PT 11.0 Seconds (9.9-11.8) 08/08/17 18:25 INR 1.02 (0.93-1.08) 08/08/17 18:25 <Bianca Farfan - Last Filed: 08/10/17 13:42> Objective - Vital Signs/Intake and Output Vital Signs (last 24 hours): Temp Pulse Resp BP Pulse Ox 97.9 F 67 20 113/71 96 08/10/17 12:00 08/10/17 12:00 08/10/17 12:00 08/10/17 12:00 08/10/17 05:58 Intake and Output: 08/10/17 08/10/17 06:59 18:59 Intake Total 300 Output Total 4700 Balance -4400 - Medications Medications: Current Medications Acetaminophen (Tylenol 325mg Tab) 650 mg PO Q4 PRN PRN Reason: Fever >100.4 F Last Admin: 08/09/17 15:03 Dose: 650 mg Famotidine (Pepcid) 20 mg PO HS [facility]ISTA Dopamine HCl/Dextrose (Dopamine 400mg/250ml D5w) 400 mg in 250 mls @ 5.603 mls/ hr IV .Q24H PRN; Protocol; 2.5 MCG/KG/MIN PRN Reason: TITRATE PER MD ORDER Last Admin: 08/09/17 17:47 Dose: 2.5 mcg/kg/min, 5.603 mls/hr Sodium Chloride (Sodium Chloride 0.9%) 1,000 mls @ 100 mls/hr IV .Q10H [facility]ISTA Last Admin: 08/10/17 12:27 Dose: 100 mls/hr Ketorolac Tromethamine (Toradol) 15 mg IVP Q4 PRN PRN Reason: Pain, severe (8-10) Last Admin: 08/08/17 21:48 Dose: 15 mg Ondansetron HCl (Zofran Inj) 4 mg IVP Q8H PRN PRN Reason: Nausea/Vomiting Last Admin: 08/10/17 12:19 Dose: 4 mg Oxycodone/Acetaminophen (Percocet 5/325 Mg Tab) 1 tab PO Q6H PRN PRN Reason: Pain, moderate (4-7) Stop: 08/11/17 19:33 Last Admin: 08/10/17 02:44 Dose: 1 tab - Labs Labs: 08/10/17 06:00 08/10/17 06:00 PT 11.0 Seconds (9.9-11.8) 08/08/17 18:25 INR 1.02 (0.93-1.08) 08/08/17 18:25 Attending/Attestation - Attestation I have personally seen and examined this patient.: Yes I have fully participated in the care of the patient.: Yes I have reviewed all pertinent clinical information, including history, physical exam and plan: Yes Notes (Text): 08/10/17 13:39 attending note; Patient seen and examined with resident. Patient is a 31-year-old male admitted with spontaneous primary pneumothorax on the left side. Status post chest tube placement. patient denies any Shortness of breath. Respiratory status is stable. Continue pain management with Toradol and Percocet. chest pain; secondary to pneumothorax. transient bradycardia; possible vasovagal response. Mild hypotension; possibly secondary to pain medication. cardiac enzymes negative. Cardiology evaluation appreciated. Currently on low-dose dopamine. Echocardiogram requested. Pulmonary evaluation requested. Needs outpatient pulmonary function test. Active smoking; smoking cessation is strongly advised. The diagnosis and follow-up plan discussed with patient and patient's mother in detail. the patient will follow-up with PMD of choice upon discharge.
--- NOTE | 2017-08-10 09:04 | RAD ---
HISTORY: L chest tube COMPARISON: 08/09/2017 FINDINGS: LUNGS: The left upper lobe chest tube is seen along the lateral chest wall. There is no evidence of pneumothorax PLEURA: No significant pleural effusion identified, no pneumothorax apparent. CARDIOVASCULAR: Normal. OSSEOUS STRUCTURES: No significant abnormalities. VISUALIZED UPPER ABDOMEN: Normal. OTHER FINDINGS: None. IMPRESSION: No evidence of pneumothorax. Small caliber chest tube remains in place
[2017-08-10] MEDS: Sodium Chloride 0.9% 1,000 ML IV SCH ×4 (10:07→23:03)
--- NOTE | 2017-08-10 10:27 | CARD ---
APPROVED REPORT EKG Measurement Heart [id number] CO [id number] [id number] <Conclusion> Sinus rhythm with short CO Otherwise normal ECG
[2017-08-10] MEDS ORDERED: Potassium Chloride 20 mEq ER Tab PO ONE (11:08)
--- NOTE | 2017-08-10 11:37 | CP.PCM.PN ---
Subjective - Date & Time of Evaluation Date of Evaluation: 08/10/17 Time of Evaluation: 11:32 - Subjective Subjective: Surgery Pt s&e. NAEON. Pt feeling better. Pain controlled. SOB improved. + amb. + void. using IS. Objective - Vital Signs/Intake and Output Vital Signs (last 24 hours): Temp Pulse Resp BP Pulse Ox 98.5 F 46 L 20 94/55 L 96 08/10/17 05:58 08/10/17 10:00 08/10/17 05:58 08/10/17 05:58 08/10/17 05:58 Intake and Output: 08/10/17 08/10/17 06:59 18:59 Intake Total 300 Output Total 4700 Balance -4400 - Medications Medications: Current Medications Acetaminophen (Tylenol 325mg Tab) 650 mg PO Q4 PRN PRN Reason: Fever >100.4 F Last Admin: 08/09/17 15:03 Dose: 650 mg Famotidine (Pepcid) 20 mg PO HS [facility] Dopamine HCl/Dextrose (Dopamine 400mg/250ml D5w) 400 mg in 250 mls @ 5.603 mls/ hr IV .Q24H PRN; Protocol; 2.5 MCG/KG/MIN PRN Reason: TITRATE PER MD ORDER Last Admin: 08/09/17 17:47 Dose: 2.5 mcg/kg/min, 5.603 mls/hr Sodium Chloride (Sodium Chloride 0.9%) 1,000 mls @ 100 mls/hr IV .Q10H [facility] Last Admin: 08/10/17 10:07 Dose: Not Given Ketorolac Tromethamine (Toradol) 15 mg IVP Q4 PRN PRN Reason: Pain, severe (8-10) Last Admin: 08/08/17 21:48 Dose: 15 mg Ondansetron HCl (Zofran Inj) 4 mg IVP Q8H PRN PRN Reason: Nausea/Vomiting Last Admin: 08/09/17 19:01 Dose: 4 mg Oxycodone/Acetaminophen (Percocet 5/325 Mg Tab) 1 tab PO Q6H PRN PRN Reason: Pain, moderate (4-7) Stop: 08/11/17 19:33 Last Admin: 08/10/17 02:44 Dose: 1 tab - Labs Labs: 08/10/17 06:00 10/05/17 06:00 PT 11.0 Seconds (9.9-11.8) 08/08/17 18:25 INR 1.02 (0.93-1.08) 08/08/17 18:25 - Constitutional Appears: No Acute Distress - Head Exam Head Exam: ATRAUMATIC, NORMAL INSPECTION, NORMOCEPHALIC - Eye Exam Eye Exam: EOMI, Normal appearance, PERRL Pupil Exam: NORMAL ACCOMODATION, PERRL - ENT Exam ENT Exam: Mucous Membranes Moist, Normal Exam - Neck Exam Neck Exam: Full ROM, Normal Inspection. absent: Lymphadenopathy - Respiratory Exam Respiratory Exam: Clear to Ausculation Bilateral, NORMAL BREATHING PATTERN. absent: Respiratory Distress Additional comments: L chest tube in place. No leaks. - Cardiovascular Exam Cardiovascular Exam: REGULAR RHYTHM, +S1, +S2. absent: Murmur - GI/Abdominal Exam GI & Abdominal Exam: Soft, Normal Bowel Sounds. absent: Distended, Firm, Tenderness - Extremities Exam Extremities Exam: Full ROM, Normal Inspection - Back Exam Back Exam: NORMAL INSPECTION - Neurological Exam Neurological Exam: Alert, Awake, CN II-XII Intact, Normal Gait, Oriented x3 - Psychiatric Exam Psychiatric exam: Normal Affect, Normal Mood - Skin Skin Exam: Dry, Intact, Normal Color, Warm. absent: Erythema Assessment and Plan - Assessment and Plan (Free Text) Assessment: POD 2 s/p chest tube placement for L pneumothorax: Improved -Clamp chest tube today. -F/U PM CXR -Will DC CT if no pneumo on CXR -F/U pulm -Pain control STEPHANIE Rodriguez
--- NOTE | 2017-08-10 12:37 | PN ---
DATE: REASON FOR CONSULTATION: Bradycardia, hypotension, status post pneumothorax, status post chest tube. SUBJECTIVE: The patient feels a lot better. No palpitation, no dizziness, no shortness of breath. Feels a little pain on taking a deep breath. PHYSICAL EXAMINATION: GENERAL: Sitting at 45 degrees with head up and chest tube in place. VITAL SIGNS: Temperature afebrile, heart rate 60, blood pressure 94/55. HEENT: PERRLA. Extraocular muscles intact. NECK: Supple. No carotid bruits or thyromegaly. CHEST: Clear to auscultation. HEART: S1 and S2 regular. ABDOMEN: Soft. EXTREMITIES: Clubbing and cyanosis negative. LABORATORY DATA: Blood workup as follows: WBC 10.7, hemoglobin 13.9, hematocrit 41.8, platelet count 245. Chemistry shows sodium 142, potassium 3.8, chloride 107, carbon dioxide 27, anion gap of 2, BUN 7, creatinine 0.8. TSH 0.33. Troponin 0.01. IMPRESSION: Status post spontaneous pneumothorax, hypotension, bradycardia, status post chest tube. RECOMMENDATIONS: Continue 2.5 mcg of dopamine. Continue IV fluid. Echo to assess left ventricular function. Supplement potassium. Repeat chest x-ray shows significant improvement and resolution of the pneumothorax, possibly chest tube will come out. Once the chest tube will be disconnected after 24 hours, ambulate and if remains stable, possibly will be discharged. He will get echo to assess LV function. We will follow with you. Monitor hemodynamics when the chest tube is discontinued. If the patient remains stable, heart rate remains stable, we will discontinue dopamine. We will follow with you. Thank you Dr. Farfan for providing opportunity in taking care of the patient, Arnoldo Cristobal. Hemal Balderrama MD
--- NOTE | 2017-08-10 15:16 | RAD ---
HISTORY: chest tube pull plan COMPARISON: Earlier same day FINDINGS: LUNGS: No active pulmonary disease. PLEURA: No significant pleural effusion identified, no pneumothorax apparent. CARDIOVASCULAR: Normal. OSSEOUS STRUCTURES: No significant abnormalities. VISUALIZED UPPER ABDOMEN: Normal. OTHER FINDINGS: None. IMPRESSION: A small caliber chest tube is still seen in the left upper lobe. No pneumothorax
--- NOTE | 2017-08-10 15:39 | RAD ---
HISTORY: post chest tube pull COMPARISON: Earlier same day FINDINGS: LUNGS: No active pulmonary disease. PLEURA: No significant pleural effusion identified, no pneumothorax apparent. CARDIOVASCULAR: Normal. OSSEOUS STRUCTURES: No significant abnormalities. VISUALIZED UPPER ABDOMEN: Normal. OTHER FINDINGS: None. IMPRESSION: The chest tube has been removed. No evidence of recurrent pneumothorax
--- NOTE | 2017-08-10 17:04 | CP.PCM.CON ---
History of Present Illness - History of Present Illness History of Present Illness: 31 y/o M w/ No PMHX admitted for SPP . L sided CT was placed and he was monitored overnight on suction. Today the CT was removed and L lung rexpanded. Currently no respiratory issues and feels normal again. Review of Systems - Review of Systems Review of Systems: 14 pt ROS done No positive findings Past Patient History - Tetanus Immunizations Tetanus Immunization: Unknown - Past Social History Smoking Status: Heavy Smoker > 10 Cigarettes Daily - CARDIAC Hx Cardiac Disorders: No - PULMONARY Hx Respiratory Disorders: No - NEUROLOGICAL Hx Neurological Disorder: No - HEENT Hx HEENT Problems: No - RENAL Hx Chronic Kidney Disease: No - ENDOCRINE/METABOLIC Hx Endocrine Disorders: No - HEMATOLOGICAL/ONCOLOGICAL Hx Blood Disorders: No - INTEGUMENTARY Hx Dermatological Problems: No - MUSCULOSKELETAL/RHEUMATOLOGICAL Hx Musculoskeletal Disorders: No Hx Falls: No - GASTROINTESTINAL Hx Gastrointestinal Disorders: No - GENITOURINARY/GYNECOLOGICAL Hx Genitourinary Disorders: No - PSYCHIATRIC Hx Psychophysiologic Disorder: No Hx Substance Use: Yes - SURGICAL HISTORY Hx Surgeries: No - ANESTHESIA Hx Anesthesia: Yes Hx Anesthesia Reactions: No Hx Malignant Hyperthermia: No Meds Allergies/Adverse Reactions: Allergies Allergy/AdvReac Type Severity Reaction Status Date / Time No Known Allergies Allergy Verified 11/05/16 12:48 - Medications Medications: Current Medications Acetaminophen (Tylenol 325mg Tab) 650 mg PO Q4 PRN PRN Reason: Fever >100.4 F Last Admin: 08/09/17 15:03 Dose: 650 mg Famotidine (Pepcid) 20 mg PO HS BAUTISTA Sodium Chloride (Sodium Chloride 0.9%) 1,000 mls @ 100 mls/hr IV .Q10H BAUTISTA Last Admin: 08/10/17 14:08 Dose: Not Given Ketorolac Tromethamine (Toradol) 15 mg IVP Q4 PRN PRN Reason: Pain, severe (8-10) Last Admin: 08/08/17 21:48 Dose: 15 mg Ondansetron HCl (Zofran Inj) 4 mg IVP Q8H PRN PRN Reason: Nausea/Vomiting Last Admin: 08/10/17 12:19 Dose: 4 mg Oxycodone/Acetaminophen (Percocet 5/325 Mg Tab) 1 tab PO Q6H PRN PRN Reason: Pain, moderate (4-7) Stop: 08/11/17 19:33 Last Admin: 08/10/17 02:44 Dose: 1 tab Physical Exam - Constitutional Appears: Well - Head Exam Head Exam: ATRAUMATIC - Eye Exam Eye Exam: EOMI Pupil Exam: NORMAL ACCOMODATION - ENT Exam ENT Exam: Mucous Membranes Moist, Normal Exam - Neck Exam Neck exam: Positive for: Normal Inspection - Respiratory Exam Respiratory Exam: Clear to Auscultation Bilateral, NORMAL BREATHING PATTERN - Cardiovascular Exam Cardiovascular Exam: REGULAR RHYTHM - GI/Abdominal Exam GI & Abdominal Exam: Normal Bowel Sounds Results - Vital Signs Recent Vital Signs: Last Vital Signs Temp 97.9 F 08/10/17 12:00 Pulse 67 08/10/17 12:00 Resp 20 08/10/17 12:00 BP 113/71 08/10/17 12:00 Pulse Ox 96 08/10/17 05:58 - Labs Result Diagrams: 08/10/17 06:00 08/10/17 06:00 Labs: Laboratory Results - last 24 hr 08/09/17 08/10/17 08/10/17 18:27 06:00 06:00 WBC 10.7 RBC 4.91 Hgb 13.9 L Hct 41.8 L MCV 85.1 MCH 28.3 MCHC 33.3 RDW 13.7 Plt Count 245 MPV 9.1 Gran % 64.5 Lymph % (Auto) 24.7 [place] % (Auto) 8.2 H Eos % (Auto) 2.1 Baso % (Auto) 0.5 Gran # 6.90 H Lymph # 2.6 Levy # 0.9 H Eos # 0.2 Baso # 0.05 Sodium 142 Potassium 3.8 Chloride 107 Carbon Dioxide 27 Anion Gap 12 BUN 7 Creatinine 0.8 Est GFR ( Amer) > 60 Est GFR (Non-Af Amer) > 60 Random Glucose 105 Calcium 8.8 Phosphorus 2.5 Magnesium 1.9 Total Bilirubin 0.4 AST 26 ALT 21 Alkaline Phosphatase 70 Lactate Dehydrogenase 371 Total Creatine Kinase 131 Troponin I < 0.01 Total Protein 6.6 Albumin 3.7 Globulin 2.9 Albumin/Globulin Ratio 1.3 Triglycerides 97 Cholesterol 135 LDL Cholesterol Direct 87 HDL Cholesterol 35 TSH 3rd Generation Urine Opiates Screen Negative Urine Methadone Screen Negative Ur Barbiturates Screen Negative Ur Phencyclidine Scrn Negative Ur Amphetamines Screen Negative U Benzodiazepines Scrn Negative U Oth Cocaine Metabols Negative U Cannabinoids Screen Positive H 08/10/17 06:00 WBC RBC Hgb Hct MCV MCH MCHC RDW Plt Count MPV Gran % Lymph % (Auto) [place] % (Auto) Eos % (Auto) Baso % (Auto) Gran # Lymph # Levy # Eos # Baso # Sodium Potassium Chloride Carbon Dioxide Anion Gap BUN Creatinine Est GFR ( Amer) Est GFR (Non-Af Amer) Random Glucose Calcium Phosphorus Magnesium Total Bilirubin AST ALT Alkaline Phosphatase Lactate Dehydrogenase Total Creatine Kinase Troponin I Total Protein Albumin Globulin Albumin/Globulin Ratio Triglycerides Cholesterol LDL Cholesterol Direct HDL Cholesterol TSH 3rd Generation 0.33 L Urine Opiates Screen Urine Methadone Screen Ur Barbiturates Screen Ur Phencyclidine Scrn Ur Amphetamines Screen U Benzodiazepines Scrn U Oth Cocaine Metabols U Cannabinoids Screen Assessment & Plan - Assessment and Plan (Free Text) Assessment: 31 yp M w/ SPP Likely secondary to smoking/ marijuana Phenotype of tall, slim and male increases chances. If PTX occurs again will need full work up for secondary causes such as asthma, copd, immunocompromised, collagen vascular diseases .
--- NOTE | 2017-08-10 17:47 | CARD ---
APPROVED REPORT EXAM: Two-dimensional and M-mode echocardiogram with Doppler and color Doppler. INDICATION LVFX/HYPOTENSION/BRADYCARDIA/PNEUMOTHORAX 2D DIMENSIONS IVSd0.9 (0.7-1.1cm)LVDd4.4 (3.9-5.9cm) PWd0.8 (0.7-1.1cm)LVDs2.9 (2.5-4.0cm) FS (%) 34.2 %LVEF (%)63.4 (>50%) M-Mode DIMENSIONS Aortic Root3.10 (2.2-3.7cm)Aortic Cusp Exc.1.90 (1.5-2.0cm) Aortic Valve AoV Peak Hykpahlv785.0cm/Toshia Peak GR.7mmHg Mitral Valve MV E Nalrguvu69.0cm/sMV A Othcjhva41.0cm/sE/A ratio1.8 TDI Lateral E' Peak V17.70cm/sMedial E' Peak V12.50cm/sE/Lateral E'4.3 E/Medial E'6.1 Pulmonary Valve PV Peak Jpymqowd86.6cm/sPV Peak Grad.2mmHg Tricuspid Valve TR Peak Kvczurwk543xo/sRAP [id number] Peak Gr.10mmHg [id number] LEFT VENTRICLE The left ventricle is normal size. There is normal left ventricular wall thickness. The left ventricular function is normal.EF-60-65% There is normal LV segmental wall motion. The left ventricular diastolic function is normal. No left ventricle thrombus noted on this study. There is no ventricular septal defect visualized. There is no left ventricular aneurysm. There is no mass noted in the left ventricle. RIGHT VENTRICLE The right ventricle is normal size. There is normal right ventricular wall thickness. The right ventricular systolic function is normal. ATRIA The left atrium size is normal. The right atrium size is normal. The interatrial septum is intact with no evidence for an atrial septal defect. AORTIC VALVE The aortic valve is thickened but opens well. There is trace aortic regurgitation. There is no aortic valvular stenosis. There is no aortic valvular vegetation. MITRAL VALVE The mitral valve is thickened but opens well. Mitral regurgitation is trace. There is no mitral valve stenosis. There is no evidence of mitral valve prolapse. TRICUSPID VALVE The tricuspid valve leaflets are thickened , but open well. There is trace tricuspid regurgitation.RVSP-20 mmof hg. There is no tricuspid valve stenosis. There is no tricuspid valve prolapse or vegetation. PULMONIC VALVE The pulmonary valve is normal in structure. GREAT VESSELS The aortic root is normal in size. The ascending aorta is normal in size. The pulmonary artery is normal. The IVC is normal in size and collapses >50% with inspiration. PERICARDIAL EFFUSION There is no pleural effusion. There is no pericardial effusion. <Conclusion> Normal chamber Size, EF-60-65% Trace Mr/Tr/AR RVSP-20 mmof Hg.
--- NOTE | 2017-08-10 21:27 | CARD ---
APPROVED REPORT EKG Measurement Heart [id number] <Conclusion> Sinus bradycardia with sinus arrhythmia with short MS Possible Anterolateral infarct, age undetermined Abnormal ECG
[2017-08-11 06:12] VITALS: O2SAT 98
--- NOTE | 2017-08-11 08:34 | CP.PCM.PN ---
Subjective - Date & Time of Evaluation Date of Evaluation: 08/11/17 Time of Evaluation: 08:29 - Subjective Subjective: Surgery Pt s&e. NAEON. Chest tube pulled yesterday. Dressing changed. Deniese CP/SOB/ dizziness. + amb. using IS. No complaints. Objective - Vital Signs/Intake and Output Vital Signs (last 24 hours): Temp Pulse Resp BP Pulse Ox 98.0 F 63 20 95/52 L 98 08/11/17 06:00 08/11/17 06:00 08/11/17 06:00 08/11/17 06:00 08/11/17 06:00 Intake and Output: 08/11/17 08/11/17 06:59 18:59 Intake Total 1200 Output Total 0 Balance 1200 - Medications Medications: Current Medications Acetaminophen (Tylenol 325mg Tab) 650 mg PO Q4 PRN PRN Reason: Fever >100.4 F Last Admin: 08/09/17 15:03 Dose: 650 mg Famotidine (Pepcid) 20 mg PO HS BAUTISTA Last Admin: 08/10/17 23:05 Dose: Not Given Sodium Chloride (Sodium Chloride 0.9%) 1,000 mls @ 100 mls/hr IV .Q10H BAUTISTA Last Admin: 08/10/17 23:03 Dose: 100 mls/hr Ketorolac Tromethamine (Toradol) 15 mg IVP Q4 PRN PRN Reason: Pain, severe (8-10) Last Admin: 08/08/17 21:48 Dose: 15 mg Ondansetron HCl (Zofran Inj) 4 mg IVP Q8H PRN PRN Reason: Nausea/Vomiting Last Admin: 08/10/17 12:19 Dose: 4 mg Oxycodone/Acetaminophen (Percocet 5/325 Mg Tab) 1 tab PO Q6H PRN PRN Reason: Pain, moderate (4-7) Stop: 08/11/17 19:33 Last Admin: 08/10/17 02:44 Dose: 1 tab - Labs Labs: 08/10/17 06:00 08/10/17 06:00 PT 11.0 Seconds (9.9-11.8) 08/08/17 18:25 INR 1.02 (0.93-1.08) 08/08/17 18:25 - Constitutional Appears: No Acute Distress - Head Exam Head Exam: ATRAUMATIC, NORMAL INSPECTION, NORMOCEPHALIC - Eye Exam Eye Exam: EOMI, Normal appearance, PERRL Pupil Exam: NORMAL ACCOMODATION, PERRL - ENT Exam ENT Exam: Mucous Membranes Moist, Normal Exam - Neck Exam Neck Exam: Full ROM, Normal Inspection. absent: Lymphadenopathy - Respiratory Exam Respiratory Exam: Clear to Ausculation Bilateral, NORMAL BREATHING PATTERN. absent: Respiratory Distress Additional comments: Dressing C/D/I - Cardiovascular Exam Cardiovascular Exam: REGULAR RHYTHM, +S1, +S2. absent: Murmur - GI/Abdominal Exam GI & Abdominal Exam: Soft, Normal Bowel Sounds. absent: Distended, Tenderness - Extremities Exam Extremities Exam: Full ROM, Normal Capillary Refill, Normal Inspection. absent : Joint Swelling, Pedal Edema - Back Exam Back Exam: NORMAL INSPECTION - Neurological Exam Neurological Exam: Alert, Awake, CN II-XII Intact, Normal Gait, Oriented x3 - Psychiatric Exam Psychiatric exam: Normal Affect, Normal Mood - Skin Skin Exam: Dry, Intact, Normal Color, Warm. absent: Erythema Assessment and Plan - Assessment and Plan (Free Text) Assessment: POD 3 s/p chest tube. 2/2 spontaneous pneumothorax. -CXR : resolution of pneumothorax. -OK to DC for surgical standpoint -OK to take dressing off in 2 2days. OK to take shower in 2 days. take dressing off. -Smoking cessation Will STEPHANIE Rodriguez
--- NOTE | 2017-08-11 09:26 | RAD ---
HISTORY: post chest tube pull. COMPARISON: Earlier same day FINDINGS: LUNGS: No active pulmonary disease. PLEURA: No significant pleural effusion identified, no pneumothorax apparent. CARDIOVASCULAR: Normal. OSSEOUS STRUCTURES: No significant abnormalities. VISUALIZED UPPER ABDOMEN: Normal. OTHER FINDINGS: None. IMPRESSION: No active disease. No pneumothorax
--- NOTE | 2017-08-11 09:30 | RAD ---
HISTORY: L chest tube COMPARISON: No prior. FINDINGS: LUNGS: No active pulmonary disease. PLEURA: No significant pleural effusion identified, no pneumothorax apparent. CARDIOVASCULAR: Normal. OSSEOUS STRUCTURES: No significant abnormalities. VISUALIZED UPPER ABDOMEN: Normal. OTHER FINDINGS: None. IMPRESSION: No evidence of pneumothorax
--- NOTE | 2017-08-11 10:38 | CP.PCM.DIS ---
<Ritchie Cannon - Last Filed: 08/11/17 11:07> Provider - Provider Date of Admission: 08/08/17 20:19 Attending physician: Bianca Farfan MD Primary care physician: NO PRIMARY CARE PROVIDER Time Spent in preparation of Discharge (in minutes): 30 Diagnosis - Discharge Diagnosis (1) Pneumothorax Status: Acute Priority: High (2) Tobacco abuse Status: Acute Priority: High Hospital Course - Lab Results Lab Results: Most Recent Lab Values WBC 10.7 10^3/ul (4.5-11.0) 08/10/17 06:00 RBC 4.91 10^6/uL (3.5-6.1) 08/10/17 06:00 Hgb 13.9 g/dL (14.0-18.0) L 08/10/17 06:00 Hct 41.8 % (42.0-52.0) L 08/10/17 06:00 MCV 85.1 fl (80.0-105.0) 08/10/17 06:00 MCH 28.3 pg (25.0-35.0) 08/10/17 06:00 MCHC 33.3 g/dl (31.0-37.0) 08/10/17 06:00 RDW 13.7 % (11.5-14.5) 08/10/17 06:00 Plt Count 245 10^3/uL (120.0-450.0) 08/10/17 06:00 MPV 9.1 fl (7.0-11.0) 08/10/17 06:00 Gran % 64.5 % (50.0-68.0) 08/10/17 06:00 Lymph % (Auto) 24.7 % (22.0-35.0) 08/10/17 06:00 [place] % (Auto) 8.2 % (1.0-6.0) H 08/10/17 06:00 Eos % (Auto) 2.1 % (1.5-5.0) 08/10/17 06:00 Baso % (Auto) 0.5 % (0.0-3.0) 08/10/17 06:00 Gran # 6.90 (1.4-6.5) H 08/10/17 06:00 Lymph # 2.6 (1.2-3.4) 08/10/17 06:00 [place] # 0.9 (0.1-0.6) H 08/10/17 06:00 Eos # 0.2 (0.0-0.7) 08/10/17 06:00 Baso # 0.05 K/mm3 (0.0-2.0) 08/10/17 06:00 PT 11.0 Seconds (9.9-11.8) 08/08/17 18:25 INR 1.02 (0.93-1.08) 08/08/17 18:25 Sodium 142 mmol/L (132-148) 08/10/17 06:00 Potassium 3.8 mmol/L (3.6-5.0) 08/10/17 06:00 Chloride 107 mmol/L (98-107) 08/10/17 06:00 Carbon Dioxide 27 mmol/L (21-33) 08/10/17 06:00 Anion Gap 12 (10-20) 08/10/17 06:00 BUN 7 mg/dL (7-21) 08/10/17 06:00 Creatinine 0.8 mg/dL (0.8-1.5) 08/10/17 06:00 Est GFR ( Amer) > 60 08/10/17 06:00 Est GFR (Non-Af Amer) > 60 08/10/17 06:00 Random Glucose 105 mg/dL (70-110) 08/10/17 06:00 Calcium 8.8 mg/dL (8.4-10.5) 08/10/17 06:00 Phosphorus 2.5 mg/dL (2.5-4.5) 08/10/17 06:00 Magnesium 1.9 mg/dL (1.7-2.2) 08/10/17 06:00 Total Bilirubin 0.4 mg/dL (0.2-1.3) 08/10/17 06:00 AST 26 U/L (17-59) 08/10/17 06:00 ALT 21 U/L (7-56) 08/10/17 06:00 Alkaline Phosphatase 70 U/L (38-126) 08/10/17 06:00 Lactate Dehydrogenase 371 U/L (333-699) 08/10/17 06:00 Total Creatine Kinase 131 U/L (35-230) 08/10/17 06:00 Troponin I < 0.01 ng/mL 08/10/17 06:00 Total Protein 6.6 g/dL (5.8-8.3) 08/10/17 06:00 Albumin 3.7 g/dL (3.0-4.8) 08/10/17 06:00 Globulin 2.9 gm/dL 08/10/17 06:00 Albumin/Globulin Ratio 1.3 (1.1-1.8) 08/10/17 06:00 Triglycerides 97 mg/dL (35-160) 08/10/17 06:00 Cholesterol 135 mg/dL (130-200) 08/10/17 06:00 LDL Cholesterol Direct 87 mg/dL (0-129) 08/10/17 06:00 HDL Cholesterol 35 mg/dL (29-60) 08/10/17 06:00 TSH 3rd Generation 0.33 mIU/mL (0.46-4.68) L 08/10/17 06:00 Urine Opiates Screen Negative (NEGATIVE) 08/09/17 18:27 Urine Methadone Screen Negative (NEGATIVE) 08/09/17 18:27 Ur Barbiturates Screen Negative (NEGATIVE) 08/09/17 18:27 Ur Phencyclidine Scrn Negative (NEGATIVE) 08/09/17 18:27 Ur Amphetamines Screen Negative (NEGATIVE) 08/09/17 18:27 U Benzodiazepines Scrn Negative (NEGATIVE) 08/09/17 18:27 U Oth Cocaine Metabols Negative (NEGATIVE) 08/09/17 18:27 U Cannabinoids Screen Positive (NEGATIVE) H 08/09/17 18:27 - Hospital Course Hospital Course: Patient is a 31 year old male with past medical history of tobacco abuse who was admitted for evaluation and treatment of chest pain and SOB. With the use of physical examinations, lab work, and imaging the patient was diagnosed with and treated for spontaneous pneumothorax. During their hospital stay the patient was seen by cardiology, general surgery, and pulmnology. Their recommendations were reviewed and appreciated. Patient's pneumothorax was resolved with chest tube which was managed by general surgery. During their hospital stay the patient underwent multiple chest x-rays and an echocardiogram. The results were reviewed and utilized in managing the patients clinical course. At this time the patient is medically stable for discharge to home. Patient understands and appreciates discharge plan. Patient instructed to follow up with primary care physicians and referrals within three to five days from discharge. Furthermore, the patient is instructed to take medications as prescribed and to return to emergency room for evaluation of intractable headache, fever, chills, dizziness, chest pain, shortness of breath, abdominal pain, nausea, vomiting, diarrhea, constipation, and urinary symptoms. This is a brief summary of the patients hospital course. Please see patient chart for full details. Discharge Exam - Head Exam Head Exam: ATRAUMATIC, NORMAL INSPECTION, NORMOCEPHALIC - Additional Findings Additional findings: - Constitutional Appears: Well, Non-toxic, No Acute Distress - Head Exam Head Exam: ATRAUMATIC, NORMAL INSPECTION, NORMOCEPHALIC - Eye Exam Eye Exam: EOMI - ENT Exam ENT Exam: Mucous Membranes Moist - Respiratory Exam Respiratory Exam: Clear to Ausculation Bilateral, NORMAL BREATHING PATTERN Additional comments: dressing is c/d/i, chest tube removed - Cardiovascular Exam Cardiovascular Exam: REGULAR RHYTHM - GI/Abdominal Exam GI & Abdominal Exam: Soft, Normal Bowel Sounds. absent: Distended, Tenderness - Extremities Exam Extremities Exam: absent: no clubbing, cyanosis, edema - Back Exam Back Exam: absent: CVA tenderness (L), CVA tenderness (R) - Neurological Exam Neurological Exam: Alert, Awake, Oriented x3 - Psychiatric Exam Psychiatric exam: Normal Affect, Normal Mood Discharge Plan - Follow Up Plan Condition: SERIOUS Disposition: HOME/ ROUTINE Patient education suggested?: Yes Instructions: Spontaneous Pneumothorax (DC), How to Stop Smoking (DC), Cigarette Smoking and Your Health (GEN) Additional Instructions: Patient Instructions: Take medications OTC tylenol for pain control- follow instructions on packaging. Follow up with PMD within three to five days from discharge. Return to emergency room for evaluation of intractable headache, fever, chills, dizziness, chest pain, shortness of breath, abdominal pain, nausea, vomiting, diarrhea, constipation, and urinary symptoms. Ok to take dressing off in 2 days. Ok to take shower in 2 days with dressing off. Please stop smoking Referrals: PCP,NO [Primary Care Provider] - <Bianca Farfan - Last Filed: 08/11/17 13:21> Provider - Provider Date of Admission: 08/08/17 20:19 Attending physician: Bianca Farfan MD Primary care physician: NO PRIMARY CARE PROVIDER Hospital Course - Lab Results Lab Results: Most Recent Lab Values WBC 10.7 10^3/ul (4.5-11.0) 08/10/17 06:00 RBC 4.91 10^6/uL (3.5-6.1) 08/10/17 06:00 Hgb 13.9 g/dL (14.0-18.0) L 08/10/17 06:00 Hct 41.8 % (42.0-52.0) L 08/10/17 06:00 MCV 85.1 fl (80.0-105.0) 08/10/17 06:00 MCH 28.3 pg (25.0-35.0) 08/10/17 06:00 MCHC 33.3 g/dl (31.0-37.0) 08/10/17 06:00 RDW 13.7 % (11.5-14.5) 08/10/17 06:00 Plt Count 245 10^3/uL (120.0-450.0) 08/10/17 06:00 MPV 9.1 fl (7.0-11.0) 08/10/17 06:00 Gran % 64.5 % (50.0-68.0) 08/10/17 06:00 Lymph % (Auto) 24.7 % (22.0-35.0) 08/10/17 06:00 [place] % (Auto) 8.2 % (1.0-6.0) H 08/10/17 06:00 Eos % (Auto) 2.1 % (1.5-5.0) 08/10/17 06:00 Baso % (Auto) 0.5 % (0.0-3.0) 08/10/17 06:00 Gran # 6.90 (1.4-6.5) H 08/10/17 06:00 Lymph # 2.6 (1.2-3.4) 08/10/17 06:00 [place] # 0.9 (0.1-0.6) H 08/10/17 06:00 Eos # 0.2 (0.0-0.7) 08/10/17 06:00 Baso # 0.05 K/mm3 (0.0-2.0) 08/10/17 06:00 PT 11.0 Seconds (9.9-11.8) 08/08/17 18:25 INR 1.02 (0.93-1.08) 08/08/17 18:25 Sodium 142 mmol/L (132-148) 08/10/17 06:00 Potassium 3.8 mmol/L (3.6-5.0) 08/10/17 06:00 Chloride 107 mmol/L (98-107) 08/10/17 06:00 Carbon Dioxide 27 mmol/L (21-33) 08/10/17 06:00 Anion Gap 12 (10-20) 08/10/17 06:00 BUN 7 mg/dL (7-21) 08/10/17 06:00 Creatinine 0.8 mg/dL (0.8-1.5) 08/10/17 06:00 Est GFR ( Amer) > 60 08/10/17 06:00 Est GFR (Non-Af Amer) > 60 08/10/17 06:00 Random Glucose 105 mg/dL (70-110) 08/10/17 06:00 Calcium 8.8 mg/dL (8.4-10.5) 08/10/17 06:00 Phosphorus 2.5 mg/dL (2.5-4.5) 08/10/17 06:00 Magnesium 1.9 mg/dL (1.7-2.2) 08/10/17 06:00 Total Bilirubin 0.4 mg/dL (0.2-1.3) 08/10/17 06:00 AST 26 U/L (17-59) 08/10/17 06:00 ALT 21 U/L (7-56) 08/10/17 06:00 Alkaline Phosphatase 70 U/L (38-126) 08/10/17 06:00 Lactate Dehydrogenase 371 U/L (333-699) 08/10/17 06:00 Total Creatine Kinase 131 U/L (35-230) 08/10/17 06:00 Troponin I < 0.01 ng/mL 08/10/17 06:00 Total Protein 6.6 g/dL (5.8-8.3) 08/10/17 06:00 Albumin 3.7 g/dL (3.0-4.8) 08/10/17 06:00 Globulin 2.9 gm/dL 08/10/17 06:00 Albumin/Globulin Ratio 1.3 (1.1-1.8) 08/10/17 06:00 Triglycerides 97 mg/dL (35-160) 08/10/17 06:00 Cholesterol 135 mg/dL (130-200) 08/10/17 06:00 LDL Cholesterol Direct 87 mg/dL (0-129) 08/10/17 06:00 HDL Cholesterol 35 mg/dL (29-60) 08/10/17 06:00 TSH 3rd Generation 0.33 mIU/mL (0.46-4.68) L 08/10/17 06:00 Urine Opiates Screen Negative (NEGATIVE) 08/09/17 18:27 Urine Methadone Screen Negative (NEGATIVE) 08/09/17 18:27 Ur Barbiturates Screen Negative (NEGATIVE) 08/09/17 18:27 Ur Phencyclidine Scrn Negative (NEGATIVE) 08/09/17 18:27 Ur Amphetamines Screen Negative (NEGATIVE) 08/09/17 18:27 U Benzodiazepines Scrn Negative (NEGATIVE) 08/09/17 18:27 U Oth Cocaine Metabols Negative (NEGATIVE) 08/09/17 18:27 U Cannabinoids Screen Positive (NEGATIVE) H 08/09/17 18:27 Attending/Attestation - Attestation I have personally seen and examined this patient.: Yes I have fully participated in the care of the patient.: Yes I have reviewed all pertinent clinical information, including history, physical exam and plan: Yes Notes (Text): 08/11/17 13:19 attending note; Patient seen and examined with resident. Patient is a 31-year-old male admitted with spontaneous primary pneumothorax on the left side. Status post chest tube placement and removal. Repeat CXR is normal. patient denies any Shortness of breath. Respiratory status is stable. ambulating fine. tolerating diet. Denies any pain. Mild hypotension; asymptomatic. cardiac enzymes negative. Cardiology evaluation appreciated. Echocardiogram Is normal. Pulmonary evaluation appreciated. Needs outpatient pulmonary function test. Active smoking; smoking cessation is strongly advised. The diagnosis and follow-up plan discussed with patient and patient's mother in detail. the patient will follow-up with PMD of choice upon discharge. diagnosis; Spontaneous primary pneumothorax left side Active smoking
[2017-08-11 11:59] VITALS: BP 112/66; PULSE 57; RESP 16; TEMP 98
--- NOTE | 2017-08-11 15:01 | PN ---
REASON FOR THE CONSULTATION: Bradycardia, hypotension, status post spontaneous pneumothorax, status post chest tube, status post removal of the chest tube. SUBJECTIVE: The patient feels a lot better. Chest tube has been removed. Wanted to go home. OBJECTIVE: GENERAL: Sitting on the bedside, wants to go home, not in apparent distress. VITAL SIGNS: As follows, temperature afebrile, heart rate 60, blood pressure 95/52. HEENT: PERRLA. Extraocular muscles intact. NECK: Supple. No carotid bruits or thyromegaly. CHEST: Clear to auscultation. HEART: S1 and S2 regular. ABDOMEN: Soft. EXTREMITIES: Clubbing and cyanosis negative. LABORATORY DATA: Blood workup as follows: WBC 10.3, hemoglobin 13.9, hematocrit 41.8 and platelet count 245. Chemistry shows sodium of 142, potassium of 4, chloride 107, carbon dioxide 27, anion gap of 12, BUN of 7, and creatinine of 0.7. TSH 0.33. IMPRESSION: Bradycardia, hypotension, asymptomatic, status post spontaneous pneumothorax, status post chest tube, status post removal of the chest tube. When the patient was walking in the hallway, heart rate 18, no evidence of chronotropic incompetence, no evidence of dizziness. RECOMMENDATION: Possibly discharge home. Discussed with Dr. Farfan. Ambulate. I explained to the patient to avoid any substance abuse because this can rupture again and can cause spontaneous pneumothorax. Close follow up with Pulmonary and adjust . Hemal Balderrama MD
== END 2017-08-11 12:13 | disposition home or self-care (01) | DRG 201 ==
LOC: ED 17:22 → ERH 20:19 → 2RNO 22:46
PROVIDERS: ADMIT Internal Medicine; ATTEND Internal Medicine
PROC: 0W9B30Z Drainage of Left Pleural Cavity with Drainage Device, Percutaneous Approach (ICD-10-PCS; principal; 2017-08-08)
DX: J93.83 Other pneumothorax (principal); I95.9 Hypotension, unspecified; R00.1 Bradycardia, unspecified; F17.210 Nicotine dependence, cigarettes, uncomplicated; D64.9 Anemia, unspecified

== ENCOUNTER 2018-03-03 20:56 | Emergency (ER) | payer SELFPAY ==
[2018-03-03 20:57] VITALS: BMI 19.8
[2018-03-03 21:19] VITALS: RESP 18; TEMP 97.8
[2018-03-03] MEDS ORDERED: Sodium Chloride 0.9% 1,000 ML IV SCH (21:30)
--- NOTE | 2018-03-03 21:32 | ED PDOC ---
Arrival/HPI - General Chief Complaint: Upper Extremity Problem/Injury Time Seen by Provider: 03/03/18 21:22 Historian: Patient - History of Present Illness Narrative History of Present Illness (Text): 03/03/18 21:28 pt p/w + sudden onset of right upper chest pain/severe, with pain radiating to right shoulder blades; pt states pain is rated at 6-7/10; pt states symptoms occurred while he was finishing dinner just about half an hour prior to ED arrival; pt states no sudden coughing/sneezing, no hiccuping, NO fever/chills/ sweats, no sob, no palpitations, no abd pain, no n/v, no numbness/tingling, no urinary/bowel changes, no fall/trauma/sick contact, no travel. pt states his symptoms tonight is very similar to his recent medical finding/dx of spontaneous PTX to the left chest (08/2017) pt is here for further eval. pt's without other complaints. PCP: NONE pt smokes regularly, < 1 PPD Time/Duration: Prior to Arrival Symptom Onset: Sudden Symptom Course: Unchanged Quality: Tightness, Stabbing Severity Level: 7, Severe Activities at Onset: Rest Context: Home Past Medical History - Provider Review Nursing Documentation Reviewed: Yes - Travel History Have you recently traveled outside [place] w/in the past 3 mons?: No - Past History Past History: No Previous - Infectious Disease Hx of Infectious Diseases: None - Tetanus Immunization Tetanus Immunization: Unknown - Past Medical History Past Medical History: No Previous - Cardiac Hx Cardiac Disorders: No - Pulmonary Hx Respiratory Disorders: No Other/Comment: left lung pnemothorax 6 months ago. - Neurological Hx Neurological Disorder: No - HEENT Hx HEENT Disorder: No - Renal Hx Renal Disorder: No - Endocrine/Metabolic Hx Endocrine Disorders: No - Hematological/Oncological Hx Blood Disorders: No - Integumentary Hx Dermatological Disorder: No - Musculoskeletal/Rheumatological Hx Musculoskeletal Disorders: No Hx Falls: No - Gastrointestinal Hx Gastrointestinal Disorders: No - Genitourinary/Gynecological Hx Genitourinary Disorders: No - Psychiatric Hx Psychophysiologic Disorder: No Hx Substance Use: Yes - Past Surgical History Past Surgical History: No Previous - Surgical History Other/Comment: chest tube 6 months ago - Anesthesia Hx Anesthesia: Yes Hx Anesthesia Reactions: No Hx Malignant Hyperthermia: No - Suicidal Assessment Feels Threatened In Home Enviroment: No Family/Social History - Physician Review Nursing Documentation Reviewed: Yes Family/Social History: No Known Family HX Smoking Status: Heavy Smoker > 10 Cigarettes Daily Hx Alcohol Use: Yes Hx Substance Use: Yes Hx Substance Use Treatment: No Allergies/Home Meds Allergies/Adverse Reactions: Allergies No Known Allergies Allergy (Verified 11/05/16 12:48) Review of Systems - Review of Systems Constitutional: Normal Eyes: Normal ENT: Normal Respiratory: Normal. absent: SOB, Cough Cardiovascular: Chest Pain. absent: Palpitations, Orthopnea Gastrointestinal: Normal. absent: Abdominal Pain, Nausea, Vomiting Genitourinary Male: Normal Musculoskeletal: Normal Skin: Normal Neurological: Normal Endocrine: Normal Hemo/Lymphatic: Normal Psychiatric: Normal Physical Exam Vital Signs Reviewed: Yes Vital Signs Temp Pulse Resp BP Pulse Ox 03/03/18 23:00 60 18 107/61 99 03/03/18 21:18 97.8 F 65 18 111/72 100 Temperature: Afebrile Blood Pressure: Normal Pulse: Regular Respiratory Rate: Normal Appearance: Positive for: Well-Appearing, Non-Toxic, Uncomfortable, Other (alert /awake, GCS = 15, oriented x 3, uncomfortable, moderate distress due to pain ( WORSE with MOVEMENT), resting in bed, cooperative) Pain Distress: Moderate Mental Status: Positive for: Alert and Oriented X 3 - Systems Exam Head: Present: Atraumatic, Normocephalic Pupils: Present: PERRL, Other (wearing eye-glasses, visual field intact b/l, no nystagmus, no photophobia) Extroacular Muscles: Present: EOMI Conjunctiva: Present: Normal Ears: Present: Normal Mouth: Present: Moist Mucous Membranes, Normal Teeth Pharnyx: Present: Normal Nose (External): Present: Atraumatic Nose (Internal): Present: Normal Inspection Neck: Present: Normal Range of Motion, Trachea Midline, Other (intact ROM, no midline tenderness, no base of the neck crepitus noted, no step off, no nuchal rigidity). No: Meningeal Signs, MIDLINE TENDERNESS, Paraspinal Tenderness Respiratory/Chest: Present: Clear to Auscultation, Good Air Exchange, Other (NO crepitus noted, no gross deformities noted, no w/r/r, no accessory muscle use noted, no tachypenia; palpation of mid upper chest to right scapular region elicits tenderness). No: Respiratory Distress, Accessory Muscle Use, Wheezes, Decreased Breath Sounds, Tachypneic Cardiovascular: Present: Regular Rate and Rhythm, Normal S1, S2. No: Murmurs Abdomen: Present: Normal Bowel Sounds, Other (well nourished male, no focal tenderness, no masses/rebound/guarding/rigidity, no tobias's sign, no mcburneys ' point tenderness). No: Tenderness Back: Present: Normal Inspection. No: CVA Tenderness, Midline Tenderness, Paraspinal Tenderness Upper Extremity: Present: Normal Inspection, Normal ROM, NORMAL PULSES, Neurovascularly Intact, Other (intact ROM, strength 5/5 grossly intact in all limbs). No: Edema, Tenderness Lower Extremity: Present: Normal Inspection, NORMAL PULSES, Normal ROM, Neurovascularly Intact. No: CALF TENDERNESS, Deformity Neurological: Present: GCS=15, CN II-XII Intact, Speech Normal Skin: Present: Warm, Normal Color, Other (cap refill < 1sec, no ulcerations, no petechiae, no rashes noted) Psychiatric: Present: Alert, Oriented x 3 Medical Decision Making ED Course and Treatment: 03/03/18 21:28 Impression: chest pain, r/o PTX i have consider all the differential diagnosis regarding pt's chief medical complaints/clinical findings, including but are not limited to: r/o spont PTX A/P: r/o spont ptx - labs - xray - ekg - pain control - supportive care - observe/reevaluation 03/03/18 22:48 pt is doing well pt is much more comfortable Vital signs remained stable pt is made aware of his medical results pt is encouraged smoking cessation pt is encouraged not to blow his nose too hard pt is encouraged fluids pt will f/u as directed pt will be discharged home Re-evaluation Time: 22:48 Reassessment Condition: Improved - Lab Interpretations Lab Results: 03/03/18 21:37 03/03/18 21:37 Lab Results 03/03/18 21:49: Troponin I < 0.01 03/03/18 21:37: Sodium 141, Potassium 4.2, Chloride 104, Carbon Dioxide 29, Anion Gap 12, BUN 11, Creatinine 1.0, Est GFR ( Amer) > 60, Est GFR (Non- Af Amer) > 60, Random Glucose 100, Calcium 9.3, Total Bilirubin 0.2, AST 31, ALT 23, Alkaline Phosphatase 72, Total Protein 7.4, Albumin 4.3, Globulin 3.1, Albumin/Globulin Ratio 1.4 03/03/18 21:37: PT 11.4, INR 1.00, APTT 32.7 03/03/18 21:37: WBC 9.1, RBC 4.88, Hgb 13.9 L, Hct 40.9 L, MCV 83.8, MCH 28.5, MCHC 34.0, RDW 14.0, Plt Count 262, MPV 8.8, Gran % 46.4 L, Lymph % (Auto) 38.5 H, Price % (Auto) 10.8 H, Eos % (Auto) 3.4, Baso % (Auto) 0.9, Gran # 4.22, Lymph # (Auto) 3.5 H, Price # (Auto) 1.0 H, Eos # (Auto) 0.3, Baso # (Auto) 0.08 I have reviewed the lab results: Yes Interpretation: All labs normal - RAD Interpretation Narrative RAD Interpretations (Text): 03/03/18 22:02 CXR - prelim reading, no PTX [facility] Division of Radiology [address] [address] Tel. no. Patient Name: ADRIANA READ Pt. Address: [address] [place] [address] Rec #: [id number] [place] [address]: Madhu Conte MD Pt Order Location: ED : 1985 Male Age: 32 Order #: [id number] Reason for exam: right upper chest pain, hx of spont pneumo to L Radiology CHEST TWO VIEWS (PA/LAT) Exam Date: 03/03/18 This imaging exam was performed at [facility] EXAM: XR Chest, 2 Views CLINICAL HISTORY: 32 years old, male; Pain; Chest pain; Right-sided chest pain; Additional info: Right upper chest pain, HX of spont pneumo to l TECHNIQUE: Frontal and lateral views of the chest. COMPARISON: DX - CHEST PORTABLE 2017-08-11 07:48 FINDINGS: Lungs: Unremarkable. No consolidation. Pleural space: Unremarkable. No pneumothorax. Heart: Unremarkable. No cardiomegaly. Mediastinum: Unremarkable. Bones/joints: Unremarkable. IMPRESSION: No acute findings. Dictated By: Blaze Steven MD Dictated Date/Time: 03/03/182215 Signed By: Blaze Steven MD Date Signed: 2215 Transcribed By: AKI Transcribe Date/Time : 03/03/18221503/03/18 22:22 Patient Name: ADRIANA READ Pt. Address: [address] [place] [address] Rec #: [id number] [place] [id number] Ordering Dr: Dg FELDMAN,Madhu Pt Order Location: ED : 1985 Male Age: 32 Order #: [id number] Reason for exam: right sided chest pain, hx of pnuemo (L), no traum CT Scan CHEST W/CONTRAST Exam Date: 03/03/18 This imaging exam was performed at [facility] EXAM: CT Chest With Intravenous Contrast CLINICAL HISTORY: 32 years old, male; Signs and symptoms; Other: Possible pneumothorax; Additional info: Right sided chest pain, HX of pnuemo (l), no traum TECHNIQUE: Axial computed tomography images of the chest with intravenous contrast. All CT scans at this facility use one or more dose reduction techniques, viz.: automated exposure control; ma/kV adjustment per patient size (including targeted exams where dose is matched to indication; i.e. head); or iterative reconstruction technique. Coronal and sagittal reformatted images were created and reviewed. CONTRAST: 100 mL of omni 350 administered intravenously. COMPARISON: DX - CHEST TWO VIEWS (PA/LAT) 2018-03-03 21:41 FINDINGS: Lungs: Unremarkable. No mass. No consolidation. Pleural space: Bilateral apical bullous disease, right greater than left. No consolidation. No pleural effusions. No pneumothorax. Heart: Unremarkable. No cardiomegaly. No significant pericardial effusion. Bones/joints: Bones are unremarkable. No acute fracture. No dislocation. Soft tissues: Unremarkable. Vasculature: No pulmonary embolism. No acute aortic abnormality. No thoracic aortic aneurysm. Lymph nodes: Unremarkable. No enlarged lymph nodes. IMPRESSION: 1. No evidence of acute pneumothorax. 2. Mild bilateral apical bullous disease. Dictated By: Blaze Steven MD Dictated Date/Time: 03/03/182238 Signed By: Blaze Steven MD Date Signed: 2238 Transcribed By: AKI Transcribe Date/Time : 03/03/18223803/03/18 22:49 Radiology Orders: 03/03/18 21:27 CHEST TWO VIEWS (PA/LAT) [RAD] Stat 03/03/18 21:55 CHEST W/CONTRAST [CT] Stat Motorcycle Tester: ED Physician, Radiologist - EKG Interpretation EKG Interpretation (Text): 03/03/18 22:58 SINUS tracey at 55 bpm, normal axis, no ectopy, early repolarization is noted, otherwise normal EKG; no gross changes compare with old ekg 08/2017 Interpreted by ED Physician: Yes Type: 12 lead EKG Comparison: Similar to previous EKG - Medication Orders Current Medication Orders: Sodium Chloride (Sodium Chloride 0.9%) 1,000 mls @ 100 mls/hr IV .Q10H [facility] Last Admin: 03/03/18 21:33 Dose: 100 mls/hr eMAR Start Stop Document 03/03/18 21:33 RD (Rec: 03/03/18 21:33 RD [id number]) Intravenous Solution Start Date 03/03/18 Start Time 21:33 Discontinued Medications Morphine Sulfate (Morphine) 4 mg IVP STAT STA Stop: 03/03/18 21:58 Last Admin: 03/03/18 22:31 Dose: 4 mg MAR Pain Assessment Document 03/03/18 22:31 RD (Rec: 03/03/18 22:31 RD [id number]) Pain Reassessment Is this a pain reassessment? No Sleep Is patient sleeping during reassessment? No Presence of Pain Presence of Pain Yes Pain Scale Used Pain Scale Used Numeric Location Left, Right or Bilateral Right Pain Location Body Site Shoulder Description Description Constant Acceptable Level of Pain 8 Pain Behavior Irritability Aggravating Factors ADL's Alleviating Factors/Management Medication Techniques Alleviating Factors Medication IVP Administration Document 03/03/18 22:31 RD (Rec: 03/03/18 22:31 RD [id number]) Charges for Administration # of IVP Administrations 1 Disposition/Present on Arrival - Present on Arrival Any Indicators Present on Arrival: No History of DVT/PE: No History of Uncontrolled Diabetes: No Urinary Catheter: No History of Decub. Ulcer: No History Surgical Site Infection Following: None - Disposition Have Diagnosis and Disposition been Completed?: Yes Diagnosis: Atypical chest pain Disposition: HOME/ ROUTINE Disposition Time: 22:55 Patient Plan: Discharge Patient Problems: Current Active Problems Problem Status Onset Atypical chest pain Acute Condition: STABLE Discharge Instructions (ExitCare): Costochondritis, Chest Pain That Is Not Caused by the Heart (DC), Chest Pain (ED) Print Language: IRISH Additional Instructions: Make sure to see your doctor in 1-2 days DRINK PLENTY OF FLUIDS ENCOURAGES YOU TO STOP SMOKING take your medications as prescribed RETURN TO ED IF worse pain, cant breath, persistent vomiting, high fever >101- 102 for hours, altered behavior, slurr speech, facial changes, focal weakness ( arm/leg or both), unable to urinate, heavy/persistent bleeding, passing out, chest pain, or other medical emergencies Prescriptions: Ibuprofen [Motrin] 600 mg PO QID PRN #20 tab PRN Reason: Pain, Mild (1-3) traMADol [Ultram] 50 mg PO TID PRN #6 tab PRN Reason: Pain, Severe (8-10) Referrals: Ashley Steen, [Primary Care Provider] - Follow up with primary [facility] [Outside] - Follow up with primary [facility]] - Follow up with primary [facility] [Outside] - Follow up with primary Forms: [employer] (Ukrainian)
[2018-03-03 21:46] LABS: BASO # 0.08 K/mm3 (0.0-2.0); BASO % 0.9 % (0.0-3.0); EOS # 0.3 (0.0-0.7); EOS % 3.4 % (1.5-5.0); GRAN # 4.22 (1.4-6.5); GRAN % 46.4 % (50.0-68.0); HEMOGLOBIN 13.9 g/dL (14.0-18.0); LYMPH # 3.5 (1.2-3.4); LYMPH % 38.5 % (22.0-35.0); MEAN CELL VOLUME 83.8 fl (80.0-105.0); MEAN CORPUSCULAR HEMOGLOBIN 28.5 pg (25.0-35.0); MEAN PLATELET VOLUME 8.8 fl (7.0-11.0); MONO % 10.8 % (1.0-6.0); RBC 4.88 10^6/uL (3.5-6.1); WHITE BLOOD COUNT 9.1 10^3/ul (4.5-11.0)
[2018-03-03 21:56] LABS: ALB/GLOB RATIO 1.4 (1.1-1.8); ALBUMIN 4.3 g/dL (3.0-4.8); ALT/SGPT 23 U/L (7-56); AST/SGOT 31 U/L (17-59); BLOOD UREA NITROGEN 11 mg/dL (7-21); CALCIUM 9.3 mg/dL (8.4-10.5); GFR AFRICAN-AMERICAN > 60; GFR NON-AFRICAN AMERICAN > 60; PARTIAL THROMBOPLASTIN TIME 32.7 Seconds (25.1-36.5); PROTHROMBIN TIME 11.4 SECONDS (9.4-12.5)
[2018-03-03] MEDS ORDERED: Morphine 4 mg/ml ISec IVP STA (21:57)
[2018-03-03] MEDS ORDERED: Iohexol 350 MG/100 ML VIAL ONE (22:01)
--- NOTE | 2018-03-03 22:16 | RAD ---
EXAM: XR Chest, 2 Views CLINICAL HISTORY: 32 years old, male; Pain; Chest pain; Right-sided chest pain; Additional info: Right upper chest pain, HX of spont pneumo to l TECHNIQUE: Frontal and lateral views of the chest. COMPARISON: DX - CHEST PORTABLE 2017-08-11 07:48 FINDINGS: Lungs: Unremarkable. No consolidation. Pleural space: Unremarkable. No pneumothorax. Heart: Unremarkable. No cardiomegaly. Mediastinum: Unremarkable. Bones/joints: Unremarkable. IMPRESSION: No acute findings.
--- NOTE | 2018-03-03 22:40 | CT ---
EXAM: CT Chest With Intravenous Contrast CLINICAL HISTORY: 32 years old, male; Signs and symptoms; Other: Possible pneumothorax; Additional info: Right sided chest pain, HX of pnuemo (l), no traum TECHNIQUE: Axial computed tomography images of the chest with intravenous contrast. All CT scans at this facility use one or more dose reduction techniques, viz.: automated exposure control; ma/kV adjustment per patient size (including targeted exams where dose is matched to indication; i.e. head); or iterative reconstruction technique. Coronal and sagittal reformatted images were created and reviewed. CONTRAST: 100 mL of omni 350 administered intravenously. COMPARISON: DX - CHEST TWO VIEWS (PA/LAT) 2018-03-03 21:41 FINDINGS: Lungs: Unremarkable. No mass. No consolidation. Pleural space: Bilateral apical bullous disease, right greater than left. No consolidation. No pleural effusions. No pneumothorax. Heart: Unremarkable. No cardiomegaly. No significant pericardial effusion. Bones/joints: Bones are unremarkable. No acute fracture. No dislocation. Soft tissues: Unremarkable. Vasculature: No pulmonary embolism. No acute aortic abnormality. No thoracic aortic aneurysm. Lymph nodes: Unremarkable. No enlarged lymph nodes. IMPRESSION: 1. No evidence of acute pneumothorax. 2. Mild bilateral apical bullous disease.
[2018-03-03 23:12] VITALS: BP 107/61; PULSE 60; O2SAT 99
--- NOTE | 2018-03-04 22:45 | CARD ---
APPROVED REPORT EKG Measurement Heart [id number] <Conclusion> Sinus bradycardia Early repolarization Otherwise normal ECG
== END 2018-03-03 23:21 | disposition home or self-care (01) ==
LOC: ED 20:56
DX: R07.89 Other chest pain (principal); F17.210 Nicotine dependence, cigarettes, uncomplicated
CPT/HCPCS: 71046; 71260; 80053; 84484; 85025; 85610; 85730; 93005; 96374; 99284; J2270; J7040; Q9967

== ENCOUNTER 2018-03-16 23:42 | Emergency (ER) | payer SELFPAY ==
[2018-03-16 23:48] VITALS: BMI 17.9
[2018-03-16 23:57] VITALS: TEMP 98.7
--- NOTE | 2018-03-17 00:09 | ED PDOC ---
Arrival/HPI - General Chief Complaint: Shortness Of Breath Time Seen by Provider: 03/16/18 23:52 Historian: Patient - History of Present Illness Narrative History of Present Illness (Text): 03/16/18 23:58 32 year old male, whose past medical history includes spontaneous pneumothorax, presents to the emergency department complaining of sudden onset of left upper back pain. Patient describes the pain as a sharp liek sensation. He states the was sitting and playing video games at the time. Patient was concerned because of history of spontaneous pneumothorax last year. Patient denies any fever, chills, cough, chest pain, shortness of breath, nausea, vomiting, diarrhea, urinary symptoms, neck pain, headache, dizziness, or any other complaints. Symptom Onset: Sudden Symptom Course: Unchanged Quality: Other (sharp) Activities at Onset: Light Context: Sitting, Home Past Medical History - Provider Review Nursing Documentation Reviewed: Yes - Past History Past History: No Previous - Infectious Disease Hx of Infectious Diseases: None - Tetanus Immunization Tetanus Immunization: Unknown - Past Medical History Past Medical History: No Previous - Cardiac Hx Cardiac Disorders: No - Pulmonary Hx Respiratory Disorders: No Other/Comment: left lung pnemothorax 6 months ago. - Neurological Hx Neurological Disorder: No - HEENT Hx HEENT Disorder: No - Renal Hx Renal Disorder: No - Endocrine/Metabolic Hx Endocrine Disorders: No - Hematological/Oncological Hx Blood Disorders: No - Integumentary Hx Dermatological Disorder: No - Musculoskeletal/Rheumatological Hx Musculoskeletal Disorders: No Hx Falls: No - Gastrointestinal Hx Gastrointestinal Disorders: No - Genitourinary/Gynecological Hx Genitourinary Disorders: No - Psychiatric Hx Psychophysiologic Disorder: No Hx Substance Use: Yes - Past Surgical History Past Surgical History: No Previous - Surgical History Other/Comment: chest tube 6 months ago - Anesthesia Hx Anesthesia: Yes Hx Anesthesia Reactions: No Hx Malignant Hyperthermia: No - Suicidal Assessment Feels Threatened In Home Enviroment: No Family/Social History - Physician Review Nursing Documentation Reviewed: Yes Family/Social History: No Known Family HX Smoking Status: quit 02/21 Hx Alcohol Use: Yes Hx Substance Use: Yes Hx Substance Use Treatment: No Allergies/Home Meds Allergies/Adverse Reactions: Allergies No Known Allergies Allergy (Verified 11/05/16 12:48) Review of Systems - Physician Review All systems were reviewed & negative as marked: Yes - Review of Systems Constitutional: absent: Fevers, Other (Chills) Respiratory: absent: SOB, Cough Cardiovascular: absent: Chest Pain Gastrointestinal: absent: Diarrhea, Nausea, Vomiting Genitourinary Male: absent: Dysuria, Frequency, Hematuria Musculoskeletal: Back Pain (Left upper back pain ). absent: Neck Pain Neurological: absent: Headache, Dizziness Physical Exam Vital Signs Reviewed: Yes Vital Signs Temp Pulse Resp BP Pulse Ox 03/17/18 02:19 64 16 133/91 H 100 03/16/18 23:57 22 100 03/16/18 23:56 98.7 F 67 22 123/72 100 Temperature: Afebrile Blood Pressure: Normal Pulse: Regular Respiratory Rate: Normal Appearance: Positive for: Well-Appearing, Non-Toxic, Comfortable Pain Distress: None Mental Status: Positive for: Alert and Oriented X 3 - Systems Exam Head: Present: Atraumatic, Normocephalic Pupils: Present: PERRL Extroacular Muscles: Present: EOMI Conjunctiva: Present: Normal Mouth: Present: Moist Mucous Membranes Neck: Present: Normal Range of Motion Respiratory/Chest: Present: Clear to Auscultation, Good Air Exchange. No: Respiratory Distress, Accessory Muscle Use Cardiovascular: Present: Regular Rate and Rhythm, Normal S1, S2. No: Murmurs Abdomen: No: Tenderness, Distention, Peritoneal Signs Back: Present: Other (discomfort to the left upper back with movement ) Upper Extremity: Present: Normal Inspection. No: Cyanosis, Edema Lower Extremity: Present: Normal Inspection. No: Edema Neurological: Present: GCS=15, CN II-XII Intact, Speech Normal Skin: Present: Warm, Dry, Normal Color. No: Rashes Psychiatric: Present: Alert, Oriented x 3, Normal Insight, Normal Concentration Medical Decision Making ED Course and Treatment: 03/16/18 23:59 Impression: 32 year old male presents complaining of sudden onset of sharp left upper back pain. Patient past medical history includes spontaneous pneumothorax 1 year ago. Plan: -- EKG -- Labs -- Chest X-ray -- Reassess and disposition Prior Visits: Notes and results from previous visits were reviewed. Patient was last seen in the emergency department on 03/03/18 presents complaining right upper chest pain radiating to the right shoulder blades that began 30 minutes ago. Patient was discharged. Progress Notes: 03/17/18 00:09 EKG shows sinus bradycardia at 59 BPM with early repolarization. Unchanged from 03/03/18. Interpreted by me. 03/17/18 00:36 CXR Impression: As read by me, no acute process. - Lab Interpretations Lab Results: 03/17/18 00:07 03/17/18 00:07 Lab Results 03/17/18 00:07: D-Dimer, Quantitative < 200 03/17/18 00:07: WBC 8.0, RBC 4.99, Hgb 14.3, Hct 41.2 L, MCV 82.6, MCH 28.7, MCHC 34.7, RDW 13.2, Plt Count 244, MPV 9.5 03/17/18 00:07: Sodium 146, Potassium 3.9, Chloride 105, Carbon Dioxide 27, Anion Gap 18, BUN 12, Creatinine 1.0, Est GFR ( Amer) > 60, Est GFR (Non- Af Amer) > 60, Random Glucose 86, Calcium 9.6, Total Bilirubin 0.3, AST 26, ALT 21, Alkaline Phosphatase 76, Lactate Dehydrogenase 361, Total Creatine Kinase 75 , Troponin I < 0.01, Total Protein 7.9, Albumin 4.6, Globulin 3.2, Albumin/ Globulin Ratio 1.4 03/17/18 00:07: PT 12.3, INR 1.08, APTT 31.4 I have reviewed the lab results: Yes - RAD Interpretation Radiology Orders: 03/16/18 23:58 CHEST PORTABLE [RAD] Stat - EKG Interpretation Interpreted by ED Physician: Yes Type: 12 lead EKG - Medication Orders Current Medication Orders: Discontinued Medications Ketorolac Tromethamine (Toradol) 30 mg IVP ONCE ONE Stop: 03/17/18 00:57 Last Admin: 03/17/18 01:10 Dose: 30 mg [facility] Pain Assessment Document 03/17/18 01:10 GENO (Rec: 03/17/18 01:12 GENO [id number]) Pain Reassessment Is this a pain reassessment? Yes Presence of Pain Presence of Pain Yes Pain Scale Used Pain Scale Used Numeric Location Left, Right or Bilateral Left Upper or Lower Upper Pain Location Body Site Back Description Description Constant IVP Administration Document 03/17/18 01:10 GENO (Rec: 03/17/18 01:12 GENO [id number]) Charges for Administration # of IVP Administrations 1 Re-Assess: [facility] Pain Assessment Document 03/17/18 02:10 RG (Rec: 03/17/18 02:13 [id number]) Pain Reassessment Is this a pain reassessment? Yes Sleep Is patient sleeping during reassessment? No Presence of Pain Presence of Pain Yes Pain Scale Used Pain Scale Used Numeric Location Left, Right or Bilateral Left Upper or Lower Upper Pain Location Body Site Back Description Pain not relieved and LIP/MD was Yes notified Tramadol HCl (Ultram) 50 mg PO STAT STA Stop: 03/17/18 01:53 Last Admin: 03/17/18 02:10 Dose: 50 mg [facility] Pain Assessment Document 03/17/18 02:10 RG (Rec: 03/17/18 02:12 [id number]) Pain Reassessment Is this a pain reassessment? Yes Sleep Is patient sleeping during reassessment? No Presence of Pain Presence of Pain Yes Pain Scale Used Pain Scale Used Numeric Location Left, Right or Bilateral Left Upper or Lower Upper Pain Location Body Site Back Description Description Constant Pain Behavior Facial Grimacing Aggravating Factors Contant Pain not relieved and LIP/MD was Yes notified - Scribe Statement The provider has reviewed the documentation as recorded by the Michael Cordero Provider Scribe Attestation: All medical record entries made by the Michael were at my direction and personally dictated by me. I have reviewed the chart and agree that the record accurately reflects my personal performance of the history, physical exam, medical decision making, and the department course for this patient. I have also personally directed, reviewed, and agree with the discharge instructions and disposition. Disposition/Present on Arrival - Present on Arrival Any Indicators Present on Arrival: No History of DVT/PE: No History of Uncontrolled Diabetes: No Urinary Catheter: No History of Decub. Ulcer: No History Surgical Site Infection Following: None - Disposition Have Diagnosis and Disposition been Completed?: Yes Diagnosis: Musculoskeletal pain Disposition: HOME/ ROUTINE Disposition Time: 02:48 Patient Plan: Discharge Condition: GOOD Discharge Instructions (ExitCare): Muscle and Bone Pain (DC) Additional Instructions: Rest/no strenuous physical activity next few days/take meds as prescribed/ follow up with your doctor this week/any recurrent worsening symptoms return to the emergency room Prescriptions: Tramadol HCl [Ultram] 50 mg PO Q6 PRN #16 tab PRN Reason: Pain, Moderate (4-7) Referrals: [facility], [Primary Care Provider] - Follow up with primary Forms: [employer] (Portuguese)
[2018-03-17 00:49] LABS: ALB/GLOB RATIO 1.4 (1.1-1.8); ALBUMIN 4.6 g/dL (3.0-4.8); ALT/SGPT 21 U/L (7-56); AST/SGOT 26 U/L (17-59); BLOOD UREA NITROGEN 12 mg/dL (7-21); CALCIUM 9.6 mg/dL (8.4-10.5); GFR AFRICAN-AMERICAN > 60; GFR NON-AFRICAN AMERICAN > 60
[2018-03-17 00:50] LABS: HEMOGLOBIN 14.3 g/dL (14.0-18.0); MEAN CELL VOLUME 82.6 fl (80.0-105.0); MEAN CORPUSCULAR HEMOGLOBIN 28.7 pg (25.0-35.0); MEAN CORPUSCULAR HGB CONC 34.7 g/dl (31.0-37.0); MEAN PLATELET VOLUME 9.5 fl (7.0-11.0); RBC 4.99 10^6/uL (3.5-6.1); RED CELL DISTRIBUTION WIDTH 13.2 % (11.5-14.5)
[2018-03-17 00:59] LABS: TROPONIN I < 0.01 ng/mL
[2018-03-17 01:10] LABS: INR 1.08 (0.93-1.08); PARTIAL THROMBOPLASTIN TIME 31.4 Seconds (25.1-36.5); PROTHROMBIN TIME 12.3 SECONDS (9.4-12.5)
[2018-03-17 03:12] VITALS: BP 106/64; PULSE 59; RESP 18; O2SAT 99
--- NOTE | 2018-03-17 08:44 | RAD ---
HISTORY: left upper back pain COMPARISON: . Comparison made with chest x-ray and CT scan chest both dated 03/03/2018. FINDINGS: LUNGS: Upper lobe predominant centrilobular emphysematous changes and prominent blebs and or small bullous changes both lung apices are less well seen on this study compared to high-resolution CT chest. PLEURA: As above. No significant pleural effusion identified, no pneumothorax apparent. CARDIOVASCULAR: Normal. OSSEOUS STRUCTURES: No significant abnormalities. VISUALIZED UPPER ABDOMEN: Normal. OTHER FINDINGS: None. IMPRESSION: Upper lobe predominant centrilobular emphysematous changes and prominent blebs and or small bullous changes both lung apices are less well seen on this study compared to high-resolution CT chest.
--- NOTE | 2018-03-17 09:49 | CARD ---
APPROVED REPORT EKG Measurement Heart [id number] VT [id number] [id number] <Conclusion> Sinus bradycardia with sinus arrhythmia with short VT ST elevation, consider early repolarization, pericarditis, or injury No change
== END 2018-03-17 02:50 | disposition home or self-care (01) ==
LOC: ED 23:42
DX: M79.1 Myalgia (principal)
CPT/HCPCS: 71045; 80053; 82550; 83615; 84484; 85027; 85378; 85610; 85730; 93005; 96374; 99284; J1885

== ENCOUNTER 2018-04-11 04:05 | Inpatient (IN) | payer MEDICAID, OTHER ==
[2018-04-11 04:06] VITALS: BMI 17.9
--- NOTE | 2018-04-11 04:33 | ED PDOC ---
Arrival/HPI - General Chief Complaint: Shortness Of Breath Time Seen by Provider: 04/11/18 04:10 Historian: Patient - History of Present Illness Narrative History of Present Illness (Text): 04/11/18 04:30 32 year old male, whose history includes spontaneous pneumothorax on 08/08/17, presents to the Emergency department complaining of left sided chest pain that woke him up today. Pain is worsened with deep breaths. Patient denies any fever , chills, nausea, vomiting, diarrhea, urinary symptoms, back pain, neck pain, headache, dizziness, or any other complaints. Time/Duration: Prior to Arrival Symptom Onset: Sudden Symptom Course: Unchanged Activities at Onset: Sleeping Context: Home Past Medical History - Provider Review Nursing Documentation Reviewed: Yes - Past History Past History: No Previous - Infectious Disease Hx of Infectious Diseases: None - Tetanus Immunization Tetanus Immunization: Unknown - Past Medical History Past Medical History: No Previous - Cardiac Hx Cardiac Disorders: No - Pulmonary Hx Respiratory Disorders: No Other/Comment: left lung pnemothorax 6 months ago. - Neurological Hx Neurological Disorder: No - HEENT Hx HEENT Disorder: No - Renal Hx Renal Disorder: No - Endocrine/Metabolic Hx Endocrine Disorders: No - Hematological/Oncological Hx Blood Disorders: No - Integumentary Hx Dermatological Disorder: No - Musculoskeletal/Rheumatological Hx Musculoskeletal Disorders: No Hx Falls: No - Gastrointestinal Hx Gastrointestinal Disorders: No - Genitourinary/Gynecological Hx Genitourinary Disorders: No - Psychiatric Hx Psychophysiologic Disorder: No Hx Substance Use: Yes - Past Surgical History Past Surgical History: No Previous - Surgical History Other/Comment: chest tube 6 months ago - Anesthesia Hx Anesthesia: Yes Hx Anesthesia Reactions: No Hx Malignant Hyperthermia: No - Suicidal Assessment Feels Threatened In Home Enviroment: No Family/Social History - Physician Review Nursing Documentation Reviewed: Yes Family/Social History: Unknown Family HX Smoking Status: Never Smoked Hx Alcohol Use: Yes Hx Substance Use: Yes Hx Substance Use Treatment: No Allergies/Home Meds Allergies/Adverse Reactions: Allergies No Known Allergies Allergy (Verified 11/05/16 12:48) Review of Systems - Physician Review All systems were reviewed & negative as marked: Yes - Review of Systems Constitutional: absent: Fevers, Night Sweats Cardiovascular: Chest Pain Gastrointestinal: absent: Diarrhea, Nausea, Vomiting Genitourinary Male: absent: Dysuria Musculoskeletal: absent: Back Pain, Neck Pain Neurological: absent: Headache, Dizziness Physical Exam Vital Signs Reviewed: Yes Vital Signs Temp Pulse Resp BP Pulse Ox 04/11/18 10:50 98 F 65 16 123/71 100 04/11/18 09:24 89 16 129/68 100 04/11/18 07:26 98.3 F 60 18 117/67 100 04/11/18 06:15 67 18 112/68 100 04/11/18 05:21 77 20 117/69 100 04/11/18 04:19 12 04/11/18 04:18 98.4 F 76 12 119/79 99 - Systems Exam Head: Present: Atraumatic, Normocephalic Pupils: Present: PERRL Extroacular Muscles: Present: EOMI Conjunctiva: Present: Normal Mouth: Present: Moist Mucous Membranes Neck: Present: Normal Range of Motion Respiratory/Chest: Present: Decreased Breath Sounds (left side) Cardiovascular: Present: Regular Rate and Rhythm, Normal S1, S2. No: Murmurs Abdomen: No: Tenderness, Distention, Peritoneal Signs Back: Present: Normal Inspection Upper Extremity: Present: Normal Inspection. No: Cyanosis, Edema Lower Extremity: Present: Normal Inspection. No: Edema Neurological: Present: GCS=15, CN II-XII Intact, Speech Normal Skin: Present: Warm, Dry, Normal Color. No: Rashes Psychiatric: Present: Alert, Oriented x 3, Normal Insight, Normal Concentration Medical Decision Making ED Course and Treatment: 04/11/18 04:34 Impression: 32 year old male presents to the Emergency department complaining of left sided chest pain worsened with deep breaths. Differential Diagnosis included but are not limited to: pneumothorax Plan: -- Chest xray -- EKG -- Urinalysis -- Labs -- Reassess and disposition Prior Visits: Notes and results from previous visits were reviewed. Patient was last seen in the emergency department on 03/03/18, was diagnosed with atypical chest pain, and was discharged home. Patient also experienced a spontaneous pneumothorax on 08/08/17. case d/w dr bryant hand frame surgical elastic knitter for chest tube dr roque consulted and case d/w dr maharaj who came to ed to see pt - Lab Interpretations Lab Results: 04/11/18 04:30 04/11/18 04:30 Lab Results 04/11/18 04:30: Sodium 144, Potassium 4.4, Chloride 105, Carbon Dioxide 27, Anion Gap 17, BUN 12, Creatinine 1.0, Est GFR ( Amer) > 60, Est GFR (Non- Af Amer) > 60, Random Glucose 96, Calcium 9.7, Magnesium 2.0, Total Bilirubin 0.5, AST 25, ALT 26, Alkaline Phosphatase 63, Lactate Dehydrogenase 319 L, Total Creatine Kinase 68, Troponin I < 0.01, Total Protein 7.6, Albumin 4.5, Globulin 3.2, Albumin/Globulin Ratio 1.4 04/11/18 04:30: PT 11.9, INR 1.04, APTT 31.9 04/11/18 04:30: WBC 6.9, RBC 5.09, Hgb 14.1, Hct 41.6 L, MCV 81.7, MCH 27.7, MCHC 33.9, RDW 13.0, Plt Count 211, MPV 8.8, Gran % 42.7 L, Lymph % (Auto) 40.4 H, Stoddard % (Auto) 10.2 H, Eos % (Auto) 6.0 H, Baso % (Auto) 0.7, Gran # 2.93, Lymph # (Auto) 2.8, Stoddard # (Auto) 0.7 H, Eos # (Auto) 0.4, Baso # (Auto) 0.05 - RAD Interpretation Narrative RAD Interpretations (Text): 04/11/18 04:37 Chest Xray Chest xray reveals left sided pneumothorax, as read by me. Radiology Orders: 04/11/18 04:19 CHEST PORTABLE [RAD] Stat 04/11/18 05:29 CHEST PORTABLE [RAD] Stat - Medication Orders Current Medication Orders: Ketorolac Tromethamine (Toradol) 30 mg IVP Q6H BAUTISTA Stop: 04/16/18 14:00 Last Admin: 04/11/18 19:40 Dose: 30 mg MAR Pain Assessment Document 04/11/18 19:40 ML (Rec: 04/11/18 19:41 ML [id number]) Pain Reassessment Is this a pain reassessment? No Presence of Pain Presence of Pain Yes IVP Administration Document 04/11/18 19:40 ML (Rec: 04/11/18 19:41 ML [id number]) Charges for Administration # of IVP Administrations 1 Lidocaine (Lidoderm) 1 ea TD DAILY BAUTISTA Last Admin: 04/11/18 13:13 Dose: 1 ea Morphine Sulfate (Morphine) 2 mg IVP Q4H PRN PRN Reason: Pain, moderate (4-7) Last Admin: 04/11/18 21:32 Dose: 2 mg IVP Administration Document 04/11/18 21:32 MV (Rec: 04/11/18 21:32 MV [id number]) Charges for Administration # of IVP Administrations 1 Pantoprazole Sodium (Protonix Ec Tab) 20 mg PO ACB BAUTISTA Discontinued Medications Ibuprofen (Motrin Tab) 800 mg PO STAT STA Stop: 04/11/18 06:03 Last Admin: 04/11/18 06:23 Dose: 800 mg Lorazepam (Ativan) 0.5 mg IVP ONCE ONE PRN Reason: Protocol Stop: 04/11/18 06:02 Last Admin: 04/11/18 05:15 Dose: 0.5 mg IVP Administration Document 04/11/18 05:15 RG (Rec: 04/11/18 06:23 RG [id number]) Charges for Administration # of IVP Administrations 1 Re-Assess: Reassess Psych Meds Document 04/11/18 05:45 ML (Rec: 04/11/18 16:58 ML [id number]) Reassess Psych Med Effective Morphine Sulfate (Morphine) 2 mg IVP STAT STA Stop: 04/11/18 06:02 Last Admin: 04/11/18 06:02 Dose: 2 mg IVP Administration Document 04/11/18 06:02 RG (Rec: 04/11/18 06:23 RG [id number]) Charges for Administration # of IVP Administrations 1 - Scribe Statement The provider has reviewed the documentation as recorded by the Michael Black Provider Scribe Attestation: All medical record entries made by the Scriblizabeth were at my direction and personally dictated by me. I have reviewed the chart and agree that the record accurately reflects my personal performance of the history, physical exam, medical decision making, and the department course for this patient. I have also personally directed, reviewed, and agree with the discharge instructions and disposition. Disposition/Present on Arrival - Present on Arrival Any Indicators Present on Arrival: No History of DVT/PE: No History of Uncontrolled Diabetes: No Urinary Catheter: No History of Decub. Ulcer: No History Surgical Site Infection Following: None - Disposition Have Diagnosis and Disposition been Completed?: Yes Diagnosis: Pneumothorax Disposition: HOSPITALIZED Disposition Time: 06:00 Condition: FAIR
[2018-04-11 05:04] LABS: BASO # 0.05 K/mm3 (0.0-2.0); BASO % 0.7 % (0.0-3.0); EOS # 0.4 (0.0-0.7); GRAN # 2.93 (1.4-6.5); GRAN % 42.7 % (50.0-68.0); HEMOGLOBIN 14.1 g/dL (14.0-18.0); LYMPH # 2.8 (1.2-3.4); LYMPH % 40.4 % (22.0-35.0); MEAN CELL VOLUME 81.7 fl (80.0-105.0); MEAN CORPUSCULAR HEMOGLOBIN 27.7 pg (25.0-35.0); MEAN CORPUSCULAR HGB CONC 33.9 g/dl (31.0-37.0); MEAN PLATELET VOLUME 8.8 fl (7.0-11.0); MONO # 0.7 (0.1-0.6); MONO % 10.2 % (1.0-6.0); RBC 5.09 10^6/uL (3.5-6.1); WHITE BLOOD COUNT 6.9 10^3/ul (4.5-11.0)
[2018-04-11 05:15] LABS: INR 1.04 (0.93-1.08); PARTIAL THROMBOPLASTIN TIME 31.9 Seconds (25.1-36.5); PROTHROMBIN TIME 11.9 SECONDS (9.4-12.5)
[2018-04-11] MEDS: Morphine 2 mg/2 mL syringe IVP PRN ×5 (05:15→21:32)
[2018-04-11 05:30] LABS: ALB/GLOB RATIO 1.4 (1.1-1.8); ALBUMIN 4.5 g/dL (3.0-4.8); ALT/SGPT 26 U/L (7-56); AST/SGOT 25 U/L (17-59); BLOOD UREA NITROGEN 12 mg/dL (7-21); CALCIUM 9.7 mg/dL (8.4-10.5); GFR AFRICAN-AMERICAN > 60; GFR NON-AFRICAN AMERICAN > 60
[2018-04-11 05:34] LABS: TROPONIN I < 0.01 ng/mL
[2018-04-11] MEDS ORDERED: Morphine 2 mg/2 mL syringe IVP STA (06:01)
--- NOTE | 2018-04-11 06:03 | CP.PCM.CON ---
History of Present Illness - History of Present Illness History of Present Illness: General Surgery Consult Note for Dr. White Reason for consult: Left pneumothorax 32 M with PMH of recurrent Left pneumothorax presents to [facility] for complaint of left sided chest pain and SOB. Patient was seen and evaluated in the ED. Patient states that his symptoms began a coupkle hours before arrival. Patient was awaken from sleep due to the pain and SOB. Patient reports sudden onset. He had a left pneumothorax in August 2017 that was treat with a chest tube. Patient rate painas sever. He describes pain as constant and sharp located in leeft chest without radiation. Breathing and movement exacerbates pain while nothing alleviates it. CXR in ED confirmed left sided pneumothorax. Denies headache, dizziness/lightheadedness, vertigo, syncope, fever/chills, palpitations, abdominal pain, nausea/vomiting, diarrhea, consitpation, incontinence, or urinary symptoms. PMH: left pneumothorax August 2017 Meds: Denies Allergy: NKDA PSH: left sided chest tube placement August 2017 FH: Denies Social: former smoker, denies EtOH/illicit drug use Review of Systems - Review of Systems All systems: reviewed and no additional remarkable complaints except (as per HPI ) Past Patient History - Infectious Disease Hx of Infectious Diseases: None - Tetanus Immunizations Tetanus Immunization: Unknown - Past Social History Smoking Status: Never Smoked - CARDIAC Hx Cardiac Disorders: No - PULMONARY Hx Respiratory Disorders: No Other/Comment: left lung pnemothorax 6 months ago. - NEUROLOGICAL Hx Neurological Disorder: No - HEENT Hx HEENT Problems: No - RENAL Hx Chronic Kidney Disease: No - ENDOCRINE/METABOLIC Hx Endocrine Disorders: No - HEMATOLOGICAL/ONCOLOGICAL Hx Blood Disorders: No - INTEGUMENTARY Hx Dermatological Problems: No - MUSCULOSKELETAL/RHEUMATOLOGICAL Hx Musculoskeletal Disorders: No Hx Falls: No - GASTROINTESTINAL Hx Gastrointestinal Disorders: No - GENITOURINARY/GYNECOLOGICAL Hx Genitourinary Disorders: No - PSYCHIATRIC Hx Psychophysiologic Disorder: No Hx Substance Use: Yes - SURGICAL HISTORY Other/Comment: chest tube 6 months ago - ANESTHESIA Hx Anesthesia: Yes Hx Anesthesia Reactions: No Hx Malignant Hyperthermia: No Meds Allergies/Adverse Reactions: Allergies Allergy/AdvReac Type Severity Reaction Status Date / Time No Known Allergies Allergy Verified 11/05/16 12:48 - Medications Medications: Current Medications Ibuprofen (Motrin Tab) 800 mg PO STAT STA Stop: 04/11/18 06:03 Lorazepam (Ativan) 0.5 mg IVP ONCE ONE PRN Reason: Protocol Stop: 04/11/18 06:02 Morphine Sulfate (Morphine) 2 mg IVP Q4H PRN PRN Reason: Pain, moderate (4-7) Morphine Sulfate (Morphine) 2 mg IVP STAT STA Stop: 04/11/18 06:02 Physical Exam - Constitutional Appears: In Acute Distress - Head Exam Head Exam: ATRAUMATIC, NORMOCEPHALIC - Eye Exam Eye Exam: EOMI, Normal appearance Pupil Exam: PERRL - ENT Exam ENT Exam: Mucous Membranes Moist - Neck Exam Neck exam: Positive for: Normal Inspection Additional comments: no tracheal deviation or JVD - Respiratory Exam Respiratory Exam: Decreased Breath Sounds (Left) Additional comments: slightly tachypneic with 100% O2 saturation on 2LNC - Cardiovascular Exam Cardiovascular Exam: REGULAR RHYTHM, +S1, +S2 - GI/Abdominal Exam GI & Abdominal Exam: Normal Bowel Sounds, Soft. absent: Tenderness - Extremities Exam Extremities exam: Positive for: normal capillary refill, pedal pulses present. Negative for: calf tenderness - Back Exam Back exam: absent: CVA tenderness (L), CVA tenderness (R) - Neurological Exam Neurological exam: Alert, CN II-XII Intact, Oriented x3 - Psychiatric Exam Psychiatric exam: Normal Affect, Normal Mood - Skin Skin Exam: Dry, Intact, Normal Color, Warm Results - Labs Result Diagrams: 04/11/18 04:30 04/11/18 04:30 Labs: Laboratory Results - last 24 hr 04/11/18 04/11/18 04/11/18 04:30 04:30 04:30 WBC 6.9 RBC 5.09 Hgb 14.1 Hct 41.6 L MCV 81.7 MCH 27.7 MCHC 33.9 RDW 13.0 Plt Count 211 MPV 8.8 Gran % 42.7 L Lymph % (Auto) 40.4 H Perkins % (Auto) 10.2 H Eos % (Auto) 6.0 H Baso % (Auto) 0.7 Gran # 2.93 Lymph # (Auto) 2.8 Perkins # (Auto) 0.7 H Eos # (Auto) 0.4 Baso # (Auto) 0.05 PT 11.9 INR 1.04 APTT 31.9 Sodium 144 Potassium 4.4 Chloride 105 Carbon Dioxide 27 Anion Gap 17 BUN 12 Creatinine 1.0 Est GFR ( Amer) > 60 Est GFR (Non-Af Amer) > 60 Random Glucose 96 Calcium 9.7 Magnesium 2.0 Total Bilirubin 0.5 AST 25 ALT 26 Alkaline Phosphatase 63 Lactate Dehydrogenase 319 L Total Creatine Kinase 68 Troponin I < 0.01 Total Protein 7.6 Albumin 4.5 Globulin 3.2 Albumin/Globulin Ratio 1.4 Assessment & Plan - Assessment and Plan (Free Text) Assessment: 32 M with PMh of left pneumothorax presents with recurrent left pneumothorax Plan: -28 fr Chest tube placed on Left side -Chest tube connected to pleurovac which is on wall suction -Continuous high wall suction -Daily CXRs -Recommend Cardiothoracic Surgery Consult for recurrent left pneumothorax -Will continue to follow -Discussed with Dr. Christopher Joyner PGY1 - Date & Time Date: 04/11/18 Time: 05:30
--- NOTE | 2018-04-11 06:05 | PCM.PROC ---
Procedures Attestation:: I certify that I have explained the specified Operation(s) or Procedure(s), risks, benefits and reasonable alternatives to the Patient and/or other person responsible. The opportunity was given to ask questions and all questions answered - Chest Tube Size of Tube (cm): 13 (28 fr) Tube Sutured to Skin: Yes Sterile Dressing Applied: Yes Anesthesia: Lidocaine 1% Volume Anesthetic (mls): 15 Post Procedure: sutured to skin Leach of Air Sanders: Yes Tube Drainage: none Amount of Initial Drainage: 0 Post Procedure CXR?: Yes Patient Tolerated Procedure: Yes Complications: pain
--- NOTE | 2018-04-11 07:39 | RAD ---
HISTORY: cp COMPARISON: Portable chest 04/11/2018. FINDINGS: LUNGS: Left-sided chest tube is identified placed entry at the mid left hemithorax and terminating at the left apex with left pneumothorax markedly improved if not resolved. No infiltrates bilaterally. No right pneumothorax. PLEURA: No significant pleural effusion identified, no pneumothorax apparent. CARDIOVASCULAR: Normal. OSSEOUS STRUCTURES: No significant abnormalities. VISUALIZED UPPER ABDOMEN: Normal. OTHER FINDINGS: None. IMPRESSION: Left chest tube in situ. Markedly reduced or resolved left pneumothorax.
--- NOTE | 2018-04-11 07:41 | RAD ---
HISTORY: cp COMPARISON: Chest radiographs 03/17/2018. FINDINGS: LUNGS: No infiltrates bilaterally. A large left pneumothorax identified involving approximately 33 percent of the left thoracic cavity. No pleural effusion bilaterally or right pneumothorax. PLEURA: As above. CARDIOVASCULAR: Normal. OSSEOUS STRUCTURES: No significant abnormalities. VISUALIZED UPPER ABDOMEN: Normal. OTHER FINDINGS: None. IMPRESSION: Large left pneumothorax as discussed above. No infiltrates bilaterally or right pneumothorax. No pleural effusion bilaterally.
--- NOTE | 2018-04-11 08:00 | CP.PCM.HP ---
<Marino Hernandez - Last Filed: 04/11/18 08:28> History of Present Illness - History of Present Illness History of Present Illness: H&P for Dr. Brizuela CC: Shortness of breath HPI: 32 year old male with past medical history of tobacco abuse and spontaneous pneumothorax on 08/08/2017 who [place] [facility] [place] complaining of left sided chest pain. patient was asleep at onset of pain. Patient reports left sided pain is worsened with deep inhalation. He reports pain associated with chest tube placement. Patient denies vigorous exercise, scuba diving, acute trauma, history of pulmonary disease, smoking, hx of pulmonary HTN, hx of marfan's. Patient denies fever, chills, nausea, vomiting, diarrhea, back pain, neck pain, headache, weakness, dizziness. Patient previously hospitalized on 08/08/2017 for spontaneous pneumothorax. Patient had chest tube placed with resolution of symptoms. He followed up with top closer for which he is unable to recall name and was advised to quit smoking, he denies receiving any PFT testing since prior admission. 12 point ROS benign other than mentioned in HPI. PMH: spontaneuous pneumothorax PSH: Chest tube 08/2017 SOChx: Tobacco: Former, quit 8 months ago, EOTH: Social, ID: Denies FMH: Diabetes ALL: NKDA MEDS: Denies Present on Admission - Present on Admission Any Indicators Present on Admission: No Review of Systems - Review of Systems All systems: reviewed and no additional remarkable complaints except (other than mentioned in HPI) Past Patient History - Infectious Disease Hx of Infectious Diseases: None - Tetanus Immunizations Tetanus Immunization: Unknown - Past Social History Smoking Status: Never Smoked - CARDIAC Hx Cardiac Disorders: No - PULMONARY Hx Respiratory Disorders: No Other/Comment: left lung pnemothorax 6 months ago. - NEUROLOGICAL Hx Neurological Disorder: No - HEENT Hx HEENT Problems: No - RENAL Hx Chronic Kidney Disease: No - ENDOCRINE/METABOLIC Hx Endocrine Disorders: No - HEMATOLOGICAL/ONCOLOGICAL Hx Blood Disorders: No - INTEGUMENTARY Hx Dermatological Problems: No - MUSCULOSKELETAL/RHEUMATOLOGICAL Hx Musculoskeletal Disorders: No Hx Falls: No - GASTROINTESTINAL Hx Gastrointestinal Disorders: No - GENITOURINARY/GYNECOLOGICAL Hx Genitourinary Disorders: No - PSYCHIATRIC Hx Psychophysiologic Disorder: No Hx Substance Use: Yes - SURGICAL HISTORY Other/Comment: chest tube 6 months ago - ANESTHESIA Hx Anesthesia: Yes Hx Anesthesia Reactions: No Hx Malignant Hyperthermia: No Meds Allergies/Adverse Reactions: Allergies Allergy/AdvReac Type Severity Reaction Status Date / Time No Known Allergies Allergy Verified 11/05/16 12:48 Physical Exam - Constitutional Appears: Non-toxic - Head Exam Head Exam: ATRAUMATIC, NORMAL INSPECTION, NORMOCEPHALIC - Eye Exam Eye Exam: EOMI, PERRL Additional comments: Wearing eye glasses - ENT Exam ENT Exam: Mucous Membranes Moist - Respiratory Exam Respiratory Exam: Chest Wall Tenderness (left sided associated with chest tube insertion site), Clear to Auscultation Bilateral. absent: Prolonged Expiratory Phase, Rales, Rhonchi, Wheezes, Respiratory Distress - Cardiovascular Exam Cardiovascular Exam: REGULAR RHYTHM, +S1, +S2 - GI/Abdominal Exam GI & Abdominal Exam: Normal Bowel Sounds, Soft. absent: Firm, Guarding, Tenderness - Extremities Exam Extremities exam: Positive for: normal capillary refill, pedal pulses present. Negative for: calf tenderness, pedal edema - Neurological Exam Neurological exam: Alert, CN II-XII Intact, Oriented x3 - Psychiatric Exam Psychiatric exam: Normal Affect, Normal Mood - Skin Skin Exam: Dry, Warm Results - Vital Signs Recent Vital Signs: Last Vital Signs Temp 98.3 F 04/11/18 07:26 Pulse 60 04/11/18 07:26 Resp 18 04/11/18 07:26 BP 117/67 04/11/18 07:26 Pulse Ox 100 04/11/18 07:26 - Labs Result Diagrams: 04/11/18 04:30 04/11/18 04:30 Assessment & Plan - Assessment and Plan (Free Text) Assessment: 32 year old male with past medical history of tobacco abuse and spontaneous pneumothorax on 08/08/2017 who presents [place] [facility] [place] complaining of left sided chest pain. Patient evaluated in ED and General Surgery consulted and placed chest tube. Patient to be admitted for further medical management. Plan: 1. Spontaneous Pnuemothorax - Patient with previous spontaneous pneumothorax on 08/08/2017 - Unknown etiology, denies trauma, vigorous exercise, scuba diving, hx of pulm htn, hx of pulm disease - CXR showing left sided pneumothroax - General Surgery consulted, f/u recs - Left chest tube placed by General Surgery - Maintain SaO2 >90% - Daily CXR - Echocardiogram, evaluate for LV EF, possible presence of Pulm HTN - Pulmonary consult, f/u recs GI/DVT ppx - Pepcid - SCD Case and plan discussed with attending - Date & Time Date: 04/11/18 Time: 08:35 <Jen Brizuela - Last Filed: 04/11/18 12:50> Results - Vital Signs Recent Vital Signs: Last Vital Signs Temp 98.0 F 04/11/18 11:25 Pulse 69 04/11/18 11:25 Resp 18 04/11/18 11:25 BP 110/73 04/11/18 11:25 Pulse Ox 98 04/11/18 11:25 - Labs Result Diagrams: 04/11/18 04:30 04/11/18 04:30 Attending/Attestation - Attestation I have personally seen and examined this patient.: Yes I have fully participated in the care of the patient.: Yes I have reviewed all pertinent clinical information: Yes Notes (Text): 04/11/18 12:33 32 year old male, former smoker, with past medical history of spontaneous pneumothorax (08/22) who presents with complaint of chest pain and shortness of breath this morning. He was found to have large left pneumothorax on CXR and is s/p chest tube by surgery. Pulmonary consultation is also requested. EKG showed ST changes, pericarditis vs likely early repolarization. Initial troponin was negative, will trend and obtain echocardiogram. Jen Brizuela MD Hospitalist.
[2018-04-11] MEDS: Lidocaine 5% Patch TD SCH (13:13)
--- NOTE | 2018-04-11 13:36 | CP.PCM.CON ---
History of Present Illness - History of Present Illness History of Present Illness: CT surgery consult note for Dr. Robert Rosenberg, PGY-1 Pt S & E at bedside at 1315 32M w/PMH sig for recurrent pneumothorax consulted for recurrent spontaneous pneumothorax. Pt reports awaking this morning with sharp, severe, non radiating left sided chest pain & dyspnea with deep inspiration, similar to previous episode of pneumothorax in August 2017. Pt reported to ED for evaluation, general surgery was consulted with subsequent placement of chest tube. Admits to Left chest wall pain/discomfort at chest tube insertion site, occasional cough, pain with deep inspiration. Denies trauma to area, physical activity, N & V, F & C, changes in bowel or bladder habits, other complaints. PMH: Recurrent pneumothorax (once, august 2017) PSH: Denies All: Cats SH: Rare/social ETOH use, hx of tobacco use (quit last august), denies illicit drug use FH: Non contributory Review of Systems - Review of Systems All systems: reviewed and no additional remarkable complaints except - Constitutional Constitutional: absent: Chills, Fever - EENT Eyes: absent: Change in Vision Nose/Mouth/Throat: absent: Sore Throat - Cardiovascular Cardiovascular: Chest Pain. absent: Palpitations - Respiratory Respiratory: Cough, Pain on Inspiration (deep), Pain with Coughing - Gastrointestinal Gastrointestinal: absent: Abdominal Pain, Nausea, Vomiting - Genitourinary Genitourinary: absent: Change in Urinary Stream - Musculoskeletal Musculoskeletal: absent: Numbness, Tingling - Integumentary Integumentary: absent: Rash - Neurological Neurological: absent: Numbness, Weakness - Psychiatric Psychiatric: absent: Change in Appetite Past Patient History - Infectious Disease Hx of Infectious Diseases: None - Tetanus Immunizations Tetanus Immunization: Unknown - Past Social History Smoking Status: Current Some Days Smoker - CARDIAC Hx Cardiac Disorders: No - PULMONARY Hx Respiratory Disorders: No Other/Comment: left lung pnemothorax 6 months ago. - NEUROLOGICAL Hx Neurological Disorder: No - HEENT Hx HEENT Problems: No - RENAL Hx Chronic Kidney Disease: No - ENDOCRINE/METABOLIC Hx Endocrine Disorders: No - HEMATOLOGICAL/ONCOLOGICAL Hx Blood Disorders: No - INTEGUMENTARY Hx Dermatological Problems: No - MUSCULOSKELETAL/RHEUMATOLOGICAL Hx Musculoskeletal Disorders: No Hx Falls: No - GASTROINTESTINAL Hx Gastrointestinal Disorders: No - GENITOURINARY/GYNECOLOGICAL Hx Genitourinary Disorders: No - PSYCHIATRIC Hx Psychophysiologic Disorder: No - SURGICAL HISTORY Other/Comment: chest tube 6 months ago - ANESTHESIA Hx Anesthesia: Yes Hx Anesthesia Reactions: No Hx Malignant Hyperthermia: No Meds Allergies/Adverse Reactions: Allergies Allergy/AdvReac Type Severity Reaction Status Date / Time No Known Allergies Allergy Verified 11/05/16 12:48 - Medications Medications: Current Medications Ketorolac Tromethamine (Toradol) 30 mg IVP Q6H BAUTISTA Stop: 04/16/18 14:00 Last Admin: 04/11/18 13:13 Dose: 30 mg Lidocaine (Lidoderm) 1 ea TD DAILY BAUTISTA Last Admin: 04/11/18 13:13 Dose: 1 ea Morphine Sulfate (Morphine) 2 mg IVP Q4H PRN PRN Reason: Pain, moderate (4-7) Last Admin: 04/11/18 13:13 Dose: 2 mg Pantoprazole Sodium (Protonix Ec Tab) 20 mg PO ACB BAUTISTA Physical Exam - Constitutional Appears: Non-toxic, No Acute Distress - Head Exam Head Exam: ATRAUMATIC, NORMAL INSPECTION, NORMOCEPHALIC - Eye Exam Eye Exam: EOMI, Normal appearance - ENT Exam ENT Exam: Mucous Membranes Moist, Normal Exam - Respiratory Exam Respiratory Exam: Chest Wall Tenderness (over left insertion site), NORMAL BREATHING PATTERN. absent: Accessory Muscle Use, Prolonged Expiratory Phase, Rales, Rhonchi, Wheezes, Respiratory Distress, Stridor Additional comments: left chest tube inserted into left chest wall, dressing in place, chest tube noted to be on intermittent wall suction with airleak- turned wall suction to continuous - Cardiovascular Exam Cardiovascular Exam: REGULAR RHYTHM, +S1, +S2 - GI/Abdominal Exam GI & Abdominal Exam: Normal Bowel Sounds, Soft. absent: Tenderness - Extremities Exam Extremities exam: Positive for: normal inspection. Negative for: pedal edema - Neurological Exam Neurological exam: Alert, CN II-XII Intact, Oriented x3 - Psychiatric Exam Psychiatric exam: Normal Affect, Normal Mood - Skin Skin Exam: Dry, Intact, Normal Color, Warm Additional comments: left chest wall with dressing in place over chest tube insertion site- clean/dry /intact Results - Vital Signs Recent Vital Signs: Last Vital Signs Temp 98.0 F 04/11/18 12:47 Pulse 69 04/11/18 12:47 Resp 15 04/11/18 12:47 BP 110/73 04/11/18 12:47 Pulse Ox 98 04/11/18 11:25 - Labs Result Diagrams: 04/11/18 04:30 04/11/18 04:30 Assessment & Plan - Assessment and Plan (Free Text) Assessment: 32M w/recurrent pneumothorax s/p Left chest tube insertion by general surgery POD#0 Plan: CT to continuous wall suction- do not clamp FU Chest CT Pain control Encourage IS use ok to sit in chair in room Plan for OR in AM Will consent FU coags STEPHANIE attending Shakira, PGY-1 - Date & Time Date: 04/11/18 Time: 13:33
[2018-04-11 14:20] LABS: TROPONIN I < 0.01 ng/mL
--- NOTE | 2018-04-11 14:20 | RAD ---
HISTORY: L pneumothorax, chest tube, New air leak COMPARISON: Earlier same day FINDINGS: LUNGS: No active pulmonary disease. PLEURA: There is a left apical chest tube. There is no visible pneumothorax. CARDIOVASCULAR: Normal. OSSEOUS STRUCTURES: No significant abnormalities. VISUALIZED UPPER ABDOMEN: Normal. OTHER FINDINGS: None. IMPRESSION: There is a left apical chest tube. There is no visible pneumothorax.
--- NOTE | 2018-04-11 14:50 | CARD ---
APPROVED REPORT EKG Measurement Heart [id number] <Conclusion> Sinus rhythm with short WA ST elevation, consider early repolarization, pericarditis, or injury
--- NOTE | 2018-04-11 15:22 | CT ---
PROCEDURE: CT Chest without contrast HISTORY: pneumothorax s/p CT insertion COMPARISON: 03/03/2018 TECHNIQUE: Contiguous axial images were obtained through the chest without intravenous contrast enhancement. Sagittal and coronal reconstructions were performed. Radiation dose (DLP): 183 mGy-cm. This CT exam was performed using one or more of the following dose reduction techniques: Automated exposure control, adjustment of the mA and/or kV according to patient size, and/or use of iterative reconstruction technique. FINDINGS: LUNGS: Emphysematous changes are seen in both upper lobes with multiple small peripheral bulla. There is a chest tube terminating in the left lung apex. There is no significant residual pneumothorax. MEDIASTINUM: Unremarkable thoracic aorta. No aneurysm. Normal sized heart. Main pulmonary artery unremarkable. No vascular congestion. No lymphadenopathy. PLEURA: No pleural fluid. No pneumothorax. BONES: No fracture. No destructive lesion. UPPER ABDOMEN: Grossly unremarkable. OTHER FINDINGS: None. IMPRESSION: Emphysematous changes are seen in both upper lobes with multiple small peripheral bulla. There is a chest tube terminating in the left lung apex. There is no significant residual pneumothorax.
[2018-04-11 22:20] LABS: TROPONIN I < 0.01 ng/mL
[2018-04-12] MEDS: Morphine 2 mg/2 mL syringe IVP PRN ×2 (03:07→06:38)
[2018-04-12 07:12] LABS: BASO # 0.06 K/mm3 (0.0-2.0); BASO % 0.6 % (0.0-3.0); EOS # 0.3 (0.0-0.7); EOS % 3.1 % (1.5-5.0); GRAN # 6.32 (1.4-6.5); GRAN % 59.6 % (50.0-68.0); HEMOGLOBIN 14.6 g/dL (14.0-18.0); LYMPH % 28.1 % (22.0-35.0); MEAN CORPUSCULAR HEMOGLOBIN 27.9 pg (25.0-35.0); MEAN CORPUSCULAR HGB CONC 33.6 g/dl (31.0-37.0); MEAN PLATELET VOLUME 9.2 fl (7.0-11.0); MONO # 0.9 (0.1-0.6); MONO % 8.6 % (1.0-6.0); RBC 5.24 10^6/uL (3.5-6.1); RED CELL DISTRIBUTION WIDTH 13.1 % (11.5-14.5); WHITE BLOOD COUNT 10.6 10^3/ul (4.5-11.0)
[2018-04-12] MEDS ORDERED: Bupivacaine 0.5% Inj(30mL) ONE (07:21)
[2018-04-12 07:25] LABS: ALB/GLOB RATIO 1.3 (1.1-1.8); ALBUMIN 4.5 g/dL (3.0-4.8); ALT/SGPT 27 U/L (7-56); AST/SGOT 38 U/L (17-59); BLOOD UREA NITROGEN 12 mg/dL (7-21); CALCIUM 9.7 mg/dL (8.4-10.5); GFR AFRICAN-AMERICAN > 60; GFR NON-AFRICAN AMERICAN > 60
[2018-04-12] MEDS ORDERED: Pantoprazole 20 mg EC Tab PO SCH (07:30)
[2018-04-12] MEDS ORDERED: Midazolam 2 MG/2 ML VIAL ONE (07:34)
[2018-04-12] MEDS ORDERED: Propofol 10 mg/ml Inj (20 ML) ONE (07:34)
[2018-04-12] MEDS ORDERED: Desflurane Inhalation Anesthetic Liq (240 ml) ONE (08:26)
[2018-04-12] MEDS ORDERED: Sodium Chloride 0.9% 20 ML IV ONE (08:38)
[2018-04-12] MEDS ORDERED: Bupivacaine Liposomal Inj 20 ml ONE (08:38)
[2018-04-12] MEDS ORDERED: Neostigmine Methylsulfate 3mg/3ml Syringe IV ONE (09:06)
[2018-04-12] MEDS ORDERED: HYDROmorphone 0.5 mg/0.5 ml ISec IVP PRN (09:08)
--- NOTE | 2018-04-12 09:13 | PCM.SURG1 ---
Surgeon's Initial Post Op Note - Surgeon's Notes Surgeon: Dr. Posey Demographer: Dr. Mcpherson PGY-3, Dr. Hernandez PGY-2 Type of Anesthesia: General Endo Anesthesia Administered By: Dr. 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
[2018-04-12] MEDS ORDERED: HYDROmorphone 1 mg/ml PCA IV ONE (09:15)
[2018-04-12] MEDS ORDERED: ceFAZolin 2 GM in Sodium Chloride 0.9% 100 ML IVPB ONE ×2 (09:15→16:00)
[2018-04-12] MEDS ORDERED: HYDROmorphone 0.2 mg/ml (30ml) 30 ML IV PRN ×2 (09:21→09:24)
[2018-04-12] MEDS ORDERED: HYDROmorphone 0.5 mg/0.5 ml ISec ONE ×2 (09:53→10:10)
[2018-04-12] MEDS ORDERED: HYDROmorphone 0.5 mg/0.5 ml ISec IVP ONE ×2 (09:54→10:12)
--- NOTE | 2018-04-12 10:08 | RAD ---
HISTORY: s/p left upper lobectomy COMPARISON: Portable chest 04/11/2018. FINDINGS: LUNGS: Left chest tube may been replaced with current chest tube terminating the left apex medially. A emphysematous changes are slightly increased at the left chest wall laterally with skin maryanne in position in the interval. No interval active pulmonary disease. PLEURA: No significant pleural effusion identified, no pneumothorax apparent. CARDIOVASCULAR: Normal. OSSEOUS STRUCTURES: No significant abnormalities. VISUALIZED UPPER ABDOMEN: Normal. OTHER FINDINGS: None. IMPRESSION: Possible left chest tube exchange. No interval pneumothorax bilaterally or other acute pulmonary findings. Cardiovascular pattern is normal as well. Surgical skin maryanne are now identified in the left chest wall laterally as well as slightly increased left chest wall emphysematous changes.
[2018-04-12] MEDS ORDERED: ceFAZolin 2 GM in Sodium Chloride 0.9% 100 ML IVPB STA (11:10)
[2018-04-12] MEDS ORDERED: Sodium Chloride 0.9% 1,000 ML IV SCH ×2 (11:15→20:45)
[2018-04-12] MEDS: Lidocaine 5% Patch TD SCH (11:25)
[2018-04-12 13:44] LABS: BASO # 0.02 K/mm3 (0.0-2.0); BASO % 0.1 % (0.0-3.0); GRAN # 19.41 (1.4-6.5); GRAN % 90.8 % (50.0-68.0); HEMOGLOBIN 12.5 g/dL (14.0-18.0); LYMPH % 4.7 % (22.0-35.0); MEAN CELL VOLUME 82.8 fl (80.0-105.0); MEAN CORPUSCULAR HEMOGLOBIN 27.9 pg (25.0-35.0); MEAN CORPUSCULAR HGB CONC 33.7 g/dl (31.0-37.0); MEAN PLATELET VOLUME 8.9 fl (7.0-11.0); MONO # 0.9 (0.1-0.6); MONO % 4.4 % (1.0-6.0); PLATELET COUNT 205 10^3/uL (120.0-450.0); RBC 4.48 10^6/uL (3.5-6.1); RED CELL DISTRIBUTION WIDTH 12.9 % (11.5-14.5)
[2018-04-12 13:45] LABS: WHITE BLOOD COUNT 21.4 10^3/ul (4.5-11.0)
[2018-04-12] MEDS ORDERED: Lactated Ringer's 1,000 ML IV SCH ×2 (14:15→14:45)
[2018-04-12 14:34] LABS: LYMPHOCYTE 1 % (22.0-35.0); MONOCYTE 2 % (1.0-6.0); NEUTROPHIL 97 % (50.0-70.0)
[2018-04-12 14:35] LABS: PLATELET ESTIMATE NORMAL (NORMAL)
--- NOTE | 2018-04-12 14:38 | RAD ---
HISTORY: new air leak sanguinous output, s/p L up lobectomy COMPARISON: Earlier same day FINDINGS: LUNGS: There is a recurrent left apical pneumothorax. The chest tube is unchanged in position. There is a small left effusion PLEURA: No significant pleural effusion identified, no pneumothorax apparent. CARDIOVASCULAR: Normal. OSSEOUS STRUCTURES: No significant abnormalities. VISUALIZED UPPER ABDOMEN: Normal. OTHER FINDINGS: None. IMPRESSION: There is a recurrent left apical pneumothorax. The chest tube is unchanged in position. There is a small left effusion
--- NOTE | 2018-04-12 14:46 | CP.PCM.PN ---
Subjective - Date & Time of Evaluation Date of Evaluation: 04/12/18 Time of Evaluation: 14:00 - Subjective Subjective: Patient had a open thoracotomy with left upper lobe wedge resection this AM. There was minimal bleeding intraoperatively, and patient tolerated the procedure well. Previous chest tube was left in place and connected to suction postoperatively with 300-400cc's of serosanguinous fluid output initially and no air leak. Postoperative CXR showed minimal apical pneumothorax. Patient recovered well and was transferred to remote telemetry floor. Patient was examined 3 hours post op and patient was comfortable with no air leak, minimal further chest tube output, vitals wnl. Was called to evaluate patient by nurse for tachycardia and nausea approximately 1 hour later. Nurse stated that max heart rate was 130's and that 4mg of zofran did not alleviate nausea. Came to examine patient and his HR was down to 105-115, BP was wnl, and O2 satting 97-99 % on 2L NC. Patient had 600cc's of dark red fluid in the canister--more sanguinous than previous and intermittent strong air leak. Patient was pale and complained of persistent nausea but was not diaphoretic and in no respiratory distress. Obtained stat cbc, ekg, and CXR. EKG was sinus tachycardia and CXR showed a worsened apical pneumothorax and a small left pleural effusion. Repeat H/H had a hgb drop from 14.6 to 12.5. In the span of 20 minutes patient had increase in chest tube output to 1200 and worsened leak. Increased chest tube suction from [address] Posey and spoke to him while he was operating at another hospital, discussing the current situation. He referred me to his partner, Dr. Au. I called and spoke at length to Dr. Roe Kramer's PA because Dr. Au was scrubbed into a case and Nia spoke to her and then gave her recs to me. Policy Services Representative, Dr. Mcleod was consulted, and transfer to ICU and blood transfusion of one unit of PRBC's was ordered Objective - Vital Signs/Intake and Output Vital Signs (last 24 hours): Temp Pulse Resp BP Pulse Ox 97.4 F L 89 18 120/67 98 04/12/18 10:51 04/12/18 10:51 04/12/18 10:51 04/12/18 10:51 04/12/18 10:51 Intake and Output: 04/12/18 04/12/18 06:59 18:59 Intake Total 780 240 Output Total 350 0 Balance 430 240 - Medications Medications: Current Medications Albuterol/Ipratropium (Duoneb 3 Mg/0.5 Mg (3 Ml) Ud) 3 ml IH [id number] BAUTISTA Cefazolin Sodium 2 gm/ Sodium (Chloride) 100 mls @ 200 mls/hr IVPB ONCE ONE Stop: 04/12/18 16:29 Hydromorphone HCl (Dilaudid 0.2 Mg/Ml [employer] Custom) 30 mls @ 0 mls/hr IV .Q0M PRN PRN Reason: TITRATE PER MD ORDERS Last Admin: 04/12/18 10:42 Dose: 0.0001 mls/hr Sodium Chloride (Sodium Chloride 0.9%) 1,000 mls @ 25 mls/hr IV .Q24H [facility] Last Admin: 04/12/18 11:58 Dose: 25 mls/hr Lactated Ringer's (Lactated Ringer's) 1,000 mls @ 1,000 mls/hr IV .Q1H [facility] Last Admin: 04/12/18 14:31 Dose: 1,000 mls/hr Metoclopramide HCl (Reglan) 10 mg IV ONCE PRN PRN Reason: Nausea/Vomiting Ondansetron HCl (Zofran Inj) 4 mg IVP Q6H PRN PRN Reason: Nausea/Vomiting Last Admin: 04/12/18 11:25 Dose: 4 mg Pantoprazole Sodium (Protonix Ec Tab) 20 mg PO ACB [facility] Last Admin: 04/12/18 09:49 Dose: Not Given - Labs Labs: 04/12/18 13:40 04/12/18 06:00 PT 11.9 SECONDS (9.4-12.5) 04/11/18 04:30 INR 1.04 (0.93-1.08) 04/11/18 04:30 APTT 31.9 Seconds (25.1-36.5) 04/11/18 04:30 - Constitutional Appears: Non-toxic, No Acute Distress - Head Exam Head Exam: ATRAUMATIC, NORMOCEPHALIC - Eye Exam Eye Exam: Normal appearance - ENT Exam ENT Exam: Mucous Membranes Moist - Respiratory Exam Respiratory Exam: Decreased Breath Sounds (all left lung nunes), NORMAL BREATHING PATTERN. absent: Accessory Muscle Use, Respiratory Distress Additional comments: chest tube with 1200cc's of sanguinous/serosanguinous fluid output, intermittent grade 5 air leak, dressing intact with moderate amount of sanguinous saturation, no connection issue with the tube, which is on continuous wall suction - Cardiovascular Exam Cardiovascular Exam: Tachycardia, REGULAR RHYTHM - GI/Abdominal Exam GI & Abdominal Exam: Soft. absent: Distended - Neurological Exam Neurological Exam: Alert, Awake, Oriented x3 - Psychiatric Exam Psychiatric exam: Flat Affect, Normal Mood - Skin Skin Exam: Dry, Intact, Pallor Assessment and Plan - Assessment and Plan (Free Text) Assessment: 32M s/p 6hours s/p left upper lobe wedge resection for blebs with increased chest tube output concerning for possible intrapleural bleed. Plan: Transfer to ICU Administer 1 unit of blood and repeat H/H Monitor chest tube output and vitals closely F/U PT/PTT, VBG repeat CXR at 1730, sooner if patient becomes unstable Will continue to monitor closely NPO Discussed with Dr. Posey who agrees with above Elodia Hernandez, Pgy2
--- NOTE | 2018-04-12 15:03 | CP.PCM.PN ---
<Marino Hernandez - Last Filed: 04/12/18 14:59> Subjective - Date & Time of Evaluation Date of Evaluation: 04/12/18 Time of Evaluation: 09:00 - Subjective Subjective: Patient seen and evaluated this AM. Patient is s/p thoracotomy, left lobe resection with chest tube in place on cont suction with 400mL output of serosanguinous output, dressing intact. Patient slightly lethargic likely secondary to anesthesia. Patient denies shortness of breath, nausea, vomiting, abdominal pain. Objective - Vital Signs/Intake and Output Vital Signs (last 24 hours): Temp Pulse Resp BP Pulse Ox 97.6 F 102 H 18 116/86 98 04/12/18 14:43 04/12/18 14:43 04/12/18 14:43 04/12/18 14:43 04/12/18 10:51 Intake and Output: 04/12/18 04/12/18 06:59 18:59 Intake Total 780 290 Output Total 350 0 Balance 430 290 - Medications Medications: Current Medications Albuterol/Ipratropium (Duoneb 3 Mg/0.5 Mg (3 Ml) Ud) 3 ml IH [id number] BAUTISTA Cefazolin Sodium 2 gm/ Sodium (Chloride) 100 mls @ 200 mls/hr IVPB ONCE ONE Stop: 04/12/18 16:29 Hydromorphone HCl (Dilaudid 0.2 Mg/Ml Storeroom Attendant) 30 mls @ 0 mls/hr IV .Q0M PRN PRN Reason: TITRATE PER MD ORDERS Last Admin: 04/12/18 10:42 Dose: 0.0001 mls/hr Lactated Ringer's (Lactated Ringer's) 1,000 mls @ 1,000 mls/hr IV .Q1H BAUTISTA Last Admin: 04/12/18 14:31 Dose: 1,000 mls/hr Lactated Ringer's (Lactated Ringer's) 1,000 mls @ 100 mls/hr IV .Q10H BAUTISTA Metoclopramide HCl (Reglan) 10 mg IV ONCE PRN PRN Reason: Nausea/Vomiting Ondansetron HCl (Zofran Inj) 4 mg IVP Q6H PRN PRN Reason: Nausea/Vomiting Last Admin: 04/12/18 11:25 Dose: 4 mg Pantoprazole Sodium (Protonix Ec Tab) 20 mg PO ACB BAUTISTA Last Admin: 04/12/18 09:49 Dose: Not Given - Labs Labs: 04/12/18 13:40 04/12/18 06:00 PT 11.9 SECONDS (9.4-12.5) 04/11/18 04:30 INR 1.04 (0.93-1.08) 04/11/18 04:30 APTT 31.9 Seconds (25.1-36.5) 04/11/18 04:30 - Head Exam Head Exam: ATRAUMATIC, NORMAL INSPECTION, NORMOCEPHALIC - Eye Exam Eye Exam: EOMI, PERRL - Neck Exam Neck Exam: Full ROM - Respiratory Exam Respiratory Exam: Clear to Ausculation Bilateral, NORMAL BREATHING PATTERN. absent: Rhonchi, Wheezes - Cardiovascular Exam Cardiovascular Exam: REGULAR RHYTHM, +S1, +S2 - GI/Abdominal Exam GI & Abdominal Exam: Soft, Normal Bowel Sounds. absent: Guarding, Rigid, Tenderness - Neurological Exam Neurological Exam: Alert, Awake - Psychiatric Exam Psychiatric exam: Normal Mood Additional comments: lethargic likely secondary to anesthesia - Skin Skin Exam: Dry, Warm - Additional Findings Additional findings: Left lateral chest tube in place, dressing clear and intact, chest tube connected to continuous suction with 400mL serosanguinous fluid Surgical dressing in place, dry and intact Assessment and Plan - Assessment and Plan (Free Text) Assessment: 32 year old male, former smoker, with past medical history of spontaneous pneumothorax (08/22) who had chest tube placed / for spontaneous pneumothorax. Patient s/p CT surgery, thoracatomy with wedge resection of left lung Plan: 1. Spontaneous Pneumothorax - Previous spontaneous pneumothorax 08/08/2017 - Chest tube placed by General surgery POD#1 - Chest CT: (04/11/2018)Emphysematous changes in both upper and lower lobes, small peripheral bulla, no evidence of pneumothorax - General Surgery consulted and following - CT surgery consulted and following - s/p thoractomy with wedge resection POD#0 - Pain control with CARDIOPULMONARY TECHNOLOGIST CHIEF pump - Maintain SaO2>92% - Pulmonary consulted f/u recs - Echocardiogram f/u EKG and ST changes, pericarditis vs. likely early repolarization 2. S/P thoracotomy with lung wedge resection - Patient noted to become tachycardic, spontaneous pneumothorax left sided - 1200 mL of serosanguinous output noted - Transfusion of 1 unit pRBC planned - ICU consult per General Surgery, f/u ICU consults - See general surgery progress note for further detail GI/DVT ppx - Protonix - SCD Case and plan discussed with attending <Jen Brizuela - Last Filed: 04/13/18 07:42> Objective - Vital Signs/Intake and Output Vital Signs (last 24 hours): Temp Pulse Resp BP Pulse Ox 97.5 F L 110 H 23 103/75 100 04/12/18 21:30 04/12/18 22:30 04/12/18 22:38 04/12/18 22:11 04/12/18 22:30 Intake and Output: 04/13/18 04/13/18 06:59 18:59 Intake Total 900 Output Total 750 Balance 150 - Labs Labs: 04/12/18 19:43 04/12/18 20:45 PT 12.5 SECONDS (9.4-12.5) 04/12/18 16:38 INR 1.09 (0.93-1.08) H 04/12/18 16:38 APTT 31.9 Seconds (25.1-36.5) 04/11/18 04:30 Attending/Attestation - Attestation I have personally seen and examined this patient.: Yes I have fully participated in the care of the patient.: Yes I have reviewed all pertinent clinical information, including history, physical exam and plan: Yes Notes (Text): 04/12/18 32 year old male, former smoker, with past medical history of spontaneous pneumothorax (08/22) who presented with complaint of chest pain and shortness of breath. He was found to have large left pneumothorax on CXR and is s/p chest tube by surgery. CT chest showed emphesematous changes and multiple small bulla. He was seen by CT surgery and is s/p thoracotomy and wedge resection POD #0. ICU evaluation is requested post procedure. On admission EKG showed ST changes, pericarditis vs likely early repolarization. Repeat EKG for today. Cardiac enzymes were negative. Echocardiogram is pending. Jen Brizuela MD Hospitalist.
[2018-04-12] MEDS: Albuterol-Ipratrop 3 mg / 0.5 (3 ml) UD IH SCH ×3 (15:52→22:38)
--- NOTE | 2018-04-12 16:30 | CARD ---
APPROVED REPORT EKG Measurement Heart [id number] <Conclusion> Sinus tachycardia Otherwise normal ECG
[2018-04-12 16:34] VITALS: O2SAT 100
[2018-04-12 16:43] LABS: VENOUS BLOOD GAS BASE EXCESS -5.5 mmol/L (0.0-2.0); VENOUS BLOOD GAS PO2 124 mm/Hg (30-55); VENOUS BLOOD PH 7.23 (7.32-7.43)
[2018-04-12 16:46] LABS: BASO # 0.01 K/mm3 (0.0-2.0); GRAN # 22.41 (1.4-6.5); GRAN % 90.7 % (50.0-68.0); HEMOGLOBIN 12.3 g/dL (14.0-18.0); LYMPH # 1.5 (1.2-3.4); LYMPH % 5.9 % (22.0-35.0); MEAN CELL VOLUME 82.8 fl (80.0-105.0); MEAN CORPUSCULAR HEMOGLOBIN 28.3 pg (25.0-35.0); MEAN CORPUSCULAR HGB CONC 34.2 g/dl (31.0-37.0); MEAN PLATELET VOLUME 9.2 fl (7.0-11.0); MONO # 0.8 (0.1-0.6); MONO % 3.4 % (1.0-6.0); RBC 4.35 10^6/uL (3.5-6.1); RED CELL DISTRIBUTION WIDTH 12.8 % (11.5-14.5); WHITE BLOOD COUNT 24.7 10^3/ul (4.5-11.0)
[2018-04-12 16:52] LABS: INR 1.09 (0.93-1.08); PROTHROMBIN TIME 12.5 SECONDS (9.4-12.5)
[2018-04-12] MEDS ORDERED: Vancomycin 1gm in NS 250ml 1 GM/250 ML BAG IVPB SCH (17:15)
[2018-04-12] MEDS ORDERED: Cefepime 1gm in NS 100ml 1 GM/100 ML BAG IVPB SCH (17:15)
[2018-04-12 17:17] LABS: ALB/GLOB RATIO 1.2 (1.1-1.8); ALBUMIN 3.4 g/dL (3.0-4.8); ALT/SGPT 25 U/L (7-56); AST/SGOT 28 U/L (17-59); BLOOD UREA NITROGEN 14 mg/dL (7-21); CALCIUM 8.7 mg/dL (8.4-10.5); GFR AFRICAN-AMERICAN > 60; GFR NON-AFRICAN AMERICAN > 60
[2018-04-12 17:22] LABS: ARTERIAL BLOOD GAS HCO3 22.8 mmol/L (21-28); ARTERIAL BLOOD GAS O2 SAT 91.8 % (95-98); ARTERIAL BLOOD GAS PCO2 57 mm/Hg (35-45); ARTERIAL BLOOD GAS PH 7.21 (7.35-7.45); ARTERIAL BLOOD GAS TCO2 24.5 mmol.L (22-28)
--- NOTE | 2018-04-12 18:29 | RAD ---
HISTORY: recurrent left pneumothorax re-evaluation COMPARISON: Plain radiographs performed earlier the same day FINDINGS: LUNGS: The right lung is well inflated and clear. PLEURA: There is interval mild increase in size of known left pneumothorax. The chest tube remains stable position. Also noted is left pleural effusion. CARDIOVASCULAR: Normal. OSSEOUS STRUCTURES: No significant abnormalities. VISUALIZED UPPER ABDOMEN: Normal. OTHER FINDINGS: None. IMPRESSION: Interval mild increase in size of known left pneumothorax. No evidence for mediastinal shift. Stable position of the left chest tube.
[2018-04-12 19:50] LABS: VENOUS BLOOD GAS PO2 78 mm/Hg (30-55); VENOUS BLOOD PH 7.29 (7.32-7.43)
[2018-04-12 19:54] LABS: MEAN CORPUSCULAR HEMOGLOBIN 28.1 pg (25.0-35.0); MEAN CORPUSCULAR HGB CONC 34.3 g/dl (31.0-37.0); MEAN PLATELET VOLUME 8.9 fl (7.0-11.0); RBC 4.27 10^6/uL (3.5-6.1); RED CELL DISTRIBUTION WIDTH 12.9 % (11.5-14.5); WHITE BLOOD COUNT 24.9 10^3/ul (4.5-11.0)
[2018-04-12] MEDS ORDERED: Sod Polystyrene Sulf 15 gm/60 ml Susp PO ONE (20:31)
[2018-04-12 20:33] LABS: BLOOD UREA NITROGEN 15 mg/dL (7-21); CALCIUM 8.8 mg/dL (8.4-10.5); GFR AFRICAN-AMERICAN > 60; GFR NON-AFRICAN AMERICAN > 60
[2018-04-12] MEDS: Morphine 4 mg/ml ISec IVP PRN ×2 (21:10→22:29)
[2018-04-12] MEDS ORDERED: Sodium Chloride 0.9% 500 ML IV STA (21:22)
[2018-04-12 21:55] VITALS: TEMP 97.5
[2018-04-12 22:03] LABS: ARTERIAL BLOOD GAS HCO3 18.5 mmol/L (21-28); ARTERIAL BLOOD GAS O2 SAT 99.6 % (95-98); ARTERIAL BLOOD GAS PCO2 35 mm/Hg (35-45); ARTERIAL BLOOD GAS PH 7.33 (7.35-7.45); ARTERIAL BLOOD GAS TCO2 19.6 mmol.L (22-28)
[2018-04-12 22:41] VITALS: RESP 23
[2018-04-12 22:42] VITALS: BP 103/75; PULSE 110
--- NOTE | 2018-04-13 02:11 | CON ---
DATE: 04/12/2018 HISTORY OF PRESENT ILLNESS: The patient is a 32-year-old gentleman with history of centrilobular emphysema and recurrent pneumothorax, who presented at this time with another pneumothorax diagnosed about 1 day ago when he presented with severe and acute chest pain, it woke him up from sleep. Pain was sharp, severe, nonradiating, left-sided. Associated with shortness of breath, not alleviated by exertion, and no aggravating factors as well except for deep inspiration. He had similar episode in August 2017 where the patient was taken to OR day after, where left upper lobe resection and pleurodesis was done. Noted no nausea, no vomiting, no diarrhea, no constipation. PAST MEDICAL HISTORY: Recurrent pneumothoraces. PAST SURGICAL HISTORY: None. ALLERGIES: NKDA. SOCIAL HISTORY: The patient is an ex-smoker. He denies illicit drug abuse and only rare or social alcohol use. FAMILY HISTORY: Noncontributory. REVIEW OF SYSTEMS: Review of 12-organ systems other than mentioned in the history of present illness is negative. MEDICATIONS: None. PHYSICAL EXAMINATION: VITAL SIGNS: Temperature 97.4, blood pressure 120/67, heart rate prior to procedure was 89, however now it fluctuates between 110 and 120, respiratory rate 18, oxygen saturation 98% on 2 L nasal cannula. ENT: Head and neck atraumatic. LUNGS: Decreased breath sounds on the left side. No crackles. No wheezes. HEART: Regular rate and rhythm. S1 and S2 normal. ABDOMEN: Soft, nontender and nondistended. MUSCULOSKELETAL: The patient has been bordering on muscle wasting. SKIN: Moist. PSYCH: The patient is somnolent, on opiates for postoperative pain relief. NEUROLOGIC: The patient was seen moving all extremities spontaneously. LABORATORY DATA: WBC 21.4, hemoglobin 12.5, platelet count 205. Sodium 144, potassium 4.2, chloride 104, carbon dioxide 28, anion gap 16, BUN 12, creatinine 1, glucose 86, AST 38, ALT 27, total bilirubin 0.4, troponin x3 negative, albumin 4.5. INR 1.04. Chest x-ray showed some apical pneumothorax post procedure. Chest tube appears to be present in good position, but pneumothorax appeared to be somewhat worsening. Right side, there is no pneumothorax and no acute pulmonary disease. Chest tube was put on suction to -40 cm of water. Chest x-ray will be repeated. EKG showed sinus tachycardia at 108, but no specific ischemic changes. MEDICATIONS: DuoNeb every 4, Ancef, post-procedure hydromorphone began, lactated Ringer 100 mL/hour, metoclopramide p.r.n., Zofran p.r.n., Protonix p.o. ASSESSMENT AND PLAN: This is a 32-year-old gentleman with significant centrilobular emphysema, predominantly in the upper lobes bilaterally, complicated by recurrent pneumothoraces in the setting of previous history of tobacco abuse. Presently the patient is somewhat tachycardic and somnolent. There was increased serosanguineous output from the chest tube on the left side, coinciding with persistent pneumothorax on the left side. The pleural layer on the chest x-ray appears to be a little thick, but there was no significant pleural effusion on the chest CAT scan. Thus, possibility of trapped lung appears to be less likely. The increased chest tube output is concerning; however, the fluid appears to be more serosanguineous than alona blood. The patient maintains blood pressure well; however, a little bit tachycardic, which might represent response to pain, discomfort/nausea, hypovolemia or beginning of hemorrhagic complication. The patient dropped 2 g of hemoglobin postoperatively, which also may be dilutional; however, we will continue with serial CBC. We will transfuse 1 unit of blood with subsequent repeating CBC. The patient will be going to ICU for the management of monitoring. Two large-bore peripheral IV will be placed. Dr. Posey will be notified and surgical team will be kept in the room. Chest tube is on suction presently and we will repeat chest x-ray to make sure there is no worsening of the left-sided pneumothorax. 100%fi02 will be provided. On the other note, such an extensive centrilobular emphysema in a relatively young person may necessitate to rule out alpha 1-antitrypsin deficiency, even though panacinar emphysema is mostly associated with the above condition. However, the rather younger age is concerning. Also, I will check rapid human immunodeficiency virus test. The patient is currently on cefazolin. He is afebrile, but does have leukocytosis. Most likely this is reactive due to recent procedure; however, we will keep an eye on it, and if leukocytosis continue to rise, septic workup and broadening antibiotic coverage will be done. We will continue with mechanical deep venous thrombosis prophylaxis. We will continue with gastrointestinal prophylaxis. Head of bed elevated more than 35 degrees. Oral hygiene. I will start the patient on lactated Ringer's 100 mL/hour. As I mentioned before, hb will be followed every 4 hours. CMP and VBG with lactic acid was ordered and will be followed. Addendum: surgical team put CT on water seal, however repeated CXR showed worsening PTX and patient was put on suction again with good tidal variation and "bubbling". leukocytosis rising-->broad spectrum abx started, septic workup initiated, ID was requested for consult. ABG-->acute respiratory acidosis and c02 retention-->BUSPERSON stopped, BPAP applied, repeated ABG will be followed. Due to coverage issues, Dr. Posey decided to transfer patient to [facility]. Hb stable. no lactic acidosis ccm time 40 min Olayinka Mcleod MD SARAH
--- NOTE | 2018-04-13 02:29 | CON ---
DATE: 04/12/2018 The patient is firstly postop lobectomy on the left side, done by Dr. Posey this morning. I was called because of a gush of blood at the chest tube, about a liter in an hour. It was apparently mostly serosanguineous initially, now it is sanguineous. PHYSICAL EXAMINATION: VITAL SIGNS: Blood pressure is 112, heart rate is 98 to 102. I saw the patient about half an hour ago. There has been virtually no chest tube drainage since then. PLAN: The plan is simple. We will transfer the patient to the ICU in anticipation of a possible operation, check I and O on an hourly basis, transfuse. Freedom White MD
--- NOTE | 2018-04-13 04:33 | CP.PCM.PN ---
Subjective - Date & Time of Evaluation Date of Evaluation: 04/13/18 Time of Evaluation: 22:37 - Subjective Subjective: Late entry Patient was transferred to the ICU, where initially the output from his chest tube decreased, his heart rate improved, and he clinically appeared improved. However, patient had another episode of nausea and vomiting, developed a continuous leak on wall suction in the pleurovac, and had an ABG revealing hypercapneic respiratory acidosis. Decision was made to discontinue the dilaudid SMALL LOT OPERATOR, switching to morphine PRN, believing it was causing nausea and poor respiratory effort. Repeat CXR revealed that pneumothorax was worsening, with continuous air leak on wall suction, but no air leak on water seal. Chest tube was in correct position with no identifiable issue with the structural integrity of the tube or the dressing. Patient was placed on water seal temporarily with the suspicion that suction may be abutting an area of the lung with a leak, worsening the leak. Repeat CXR in one hour revealed worsening of the pneumothorax, and it was placed back on suction. Patient had increased sanguinous output at this time, and decision was made to transfer patient to [facility] [place] where Dr. Martell, Dr. Posey's partner who would be covering for him over the next 24 hours, has privileges. Patient had worsened tachycardia and mild hypotension, and one further unit of blood was administered, and HR and blood pressure improved. Patient was transferred to [facility] [place] without incident. Objective - Vital Signs/Intake and Output Vital Signs (last 24 hours): Temp Pulse Resp BP Pulse Ox 97.5 F L 110 H 23 103/75 100 04/12/18 21:30 04/12/18 22:30 04/12/18 22:38 04/12/18 22:11 04/12/18 22:30 Intake and Output: 04/12/18 04/13/18 18:59 06:59 Intake Total 921 900 Output Total 2997 750 Balance -2076 150 - Labs Labs: 04/12/18 19:43 04/12/18 20:45 PT 12.5 SECONDS (9.4-12.5) 04/12/18 16:38 INR 1.09 (0.93-1.08) H 04/12/18 16:38 APTT 31.9 Seconds (25.1-36.5) 04/11/18 04:30 - Constitutional Appears: Non-toxic, No Acute Distress - Head Exam Head Exam: ATRAUMATIC, NORMOCEPHALIC - Eye Exam Eye Exam: Normal appearance. absent: Conjunctival injection, Scleral icterus - ENT Exam ENT Exam: Mucous Membranes Moist, Normal Oropharynx - Respiratory Exam Respiratory Exam: NORMAL BREATHING PATTERN. absent: Accessory Muscle Use, Respiratory Distress Additional comments: chest tube on continuous -40mmHg suction with grade one continuous air leak - Cardiovascular Exam Cardiovascular Exam: Tachycardia, REGULAR RHYTHM - GI/Abdominal Exam GI & Abdominal Exam: Soft. absent: Distended, Tenderness - Extremities Exam Extremities Exam: absent: Calf Tenderness, Pedal Edema, Tenderness - Neurological Exam Neurological Exam: Alert, Awake, Oriented x3 - Psychiatric Exam Psychiatric exam: Flat Affect, Normal Mood - Skin Skin Exam: Dry, Intact, Pallor, Warm Assessment and Plan - Assessment and Plan (Free Text) Assessment: 32M s/p left lung upper lobe wedge resection for removal of blebs with worsening pneumothorax and intrathoracic bleeding Plan: Transfer patient to [facility] where patient can receive appropriate coverage by CT surgeon. Patient history and timeline of events discussed with Inge the PA of the receiving physician, Dr. Martell 1 more unit PRBC transfused Chest tube to continuous suction Discussed with Dr. Posey, who agrees with above Elodia Hernandez, PGY2
--- NOTE | 2018-04-13 08:41 | OP ---
PROCEDURE DATE: 04/12/2018 PREOPERATIVE DIAGNOSIS: Persistent and recurrent pneumothorax on the left. PROCEDURE: Left thoracotomy, ligation of blebs, and removal of source of air leak. TYPE OF ANESTHESIA: General. OUTPATIENT PHYSICAL THERAPIST ASSISTANT: General surgeon, Dr. Agnes DO. INDICATIONS FOR SURGERY: A relatively young, tall, thin man had a previous pneumothorax and hospitalized and received a chest tube. Comes in now with a recurrent 100% spontaneous pneumothorax requiring a chest tube. The lung fully expanded and had a persistent air leak. CT scan demonstrated a large amount of blebs at the apex of the left upper lobe. He understood the risks, benefits of surgery, and consented. FINDINGS: He had large amount of blebs, upper lobe. At the completion of the procedure, there was no air leak as demonstrated by insufflation of a liter of warm saline insufflating the lung. DESCRIPTION OF PROCEDURE: After general endotracheal anesthesia was applied, the left side up, all pressure points were cushioned. An axillary incision was made in the upper chest. The chest was then entered under direct vision. We identified the bleb area at the apex of the left upper lobe, delivered this into the wound. Used an Endo POLY 45 stapler. We needed 3 refills in order to remove the entire section. We then tested it as I mentioned in the findings. There was no air leak. There was good hemostasis. The chest was then closed. The ribs were then approximated with heavy PDS and the wound was closed in 3 layers. The patient tolerated the procedure well and was sent to the ICU in stable condition. Joel Posey MD
--- NOTE | 2018-04-13 09:50 | RAD ---
HISTORY: left pneumothorax COMPARISON: Earlier same day FINDINGS: LUNGS: There is no change in the large left-sided pneumothorax. A chest tube remains in place. PLEURA: As above CARDIOVASCULAR: Normal. OSSEOUS STRUCTURES: No significant abnormalities. VISUALIZED UPPER ABDOMEN: Normal. OTHER FINDINGS: None. IMPRESSION: No change in large left-sided pneumothorax. Chest tube remains in place
--- NOTE | 2018-04-13 11:07 | CARD ---
APPROVED REPORT EXAM: Two-dimensional and M-mode echocardiogram with Doppler and color Doppler. Other Information Quality : FairRhythm : INDICATION LVFX, S/P spont. PTX 2D DIMENSIONS IVSd0.8 (0.7-1.1cm)LVDd3.3 (3.9-5.9cm) PWd0.8 (0.7-1.1cm)LVDs2.4 (2.5-4.0cm) FS (%) 27.3 %LVEF (%)54.0 (>50%) M-Mode DIMENSIONS Aortic Root2.90 (2.2-3.7cm)Aortic Cusp Exc.1.60 (1.5-2.0cm) Aortic Valve AoV Peak Thwyjvpm444.0cm/s Mitral Valve MV E Dxfwhucn78.7cm/sMV A Vgcljaib42.7cm/sE/A ratio0.8 TDI E/Lateral E'0.0E/Medial E'0.0 Pulmonary Valve PV Peak Lrxabbku992.0cm/sPV Peak Grad.7mmHg LEFT VENTRICLE The left ventricle is normal size. There is normal left ventricular wall thickness. The left ventricular function is normal. The left ventricular ejection fraction is within the normal range. There is normal LV segmental wall motion. RIGHT VENTRICLE The right ventricle is normal size. ATRIA The left atrium size is normal. The right atrium size is normal. AORTIC VALVE The aortic valve is normal in structure. MITRAL VALVE The mitral valve is normal in structure. TRICUSPID VALVE The tricuspid valve is normal in structure. PULMONIC VALVE The pulmonic valve is not well visualized. GREAT VESSELS The aortic root is normal in size. PERICARDIAL EFFUSION There is no pericardial effusion. <Conclusion> Limited study on supine patient with chest tube. The left ventricle is normal size. There is normal left ventricular wall thickness. The left ventricular function is normal.
--- NOTE | 2018-04-13 11:27 | RAD ---
HISTORY: re-evaluate left pneumothorax on waterseal COMPARISON: Earlier same day FINDINGS: LUNGS: There is no change in the large left pneumothorax. Chest tube remains in place PLEURA: No significant pleural effusion identified, no pneumothorax apparent. CARDIOVASCULAR: Normal. OSSEOUS STRUCTURES: No significant abnormalities. VISUALIZED UPPER ABDOMEN: Normal. OTHER FINDINGS: None. IMPRESSION: There is no change in the large left pneumothorax. Chest tube remains in place
--- NOTE | 2018-04-13 17:39 | CP.PCM.DIS ---
Provider - Provider Date of Admission: 04/11/18 06:01 Attending physician: Jen Brizuela MD Primary care physician: NO FAMILY PROVIDER Consults: CT surgery: Dr. Posey General Surgery: Dr. White Pulmonology/Critical Care: Dr. Mcleod Time Spent in preparation of Discharge (in minutes): 35 Diagnosis - Discharge Diagnosis (1) Pneumothorax Status: Acute Priority: High Hospital Course - Lab Results Lab Results: Most Recent Lab Values WBC 24.9 10^3/ul (4.5-11.0) H 04/12/18 19:43 RBC 4.27 10^6/uL (3.5-6.1) 04/12/18 19:43 Hgb 12.0 g/dL (14.0-18.0) L 04/12/18 19:43 Hct 35.0 % (42.0-52.0) L 04/12/18 19:43 MCV 82.0 fl (80.0-105.0) 04/12/18 19:43 MCH 28.1 pg (25.0-35.0) 04/12/18 19:43 MCHC 34.3 g/dl (31.0-37.0) 04/12/18 19:43 RDW 12.9 % (11.5-14.5) 04/12/18 19:43 Plt Count 187 10^3/uL (120.0-450.0) 04/12/18 19:43 MPV 8.9 fl (7.0-11.0) 04/12/18 19:43 Gran % 90.7 % (50.0-68.0) H 04/12/18 16:38 Lymph % (Auto) 5.9 % (22.0-35.0) L 04/12/18 16:38 [place] % (Auto) 3.4 % (1.0-6.0) 04/12/18 16:38 Eos % (Auto) 0.0 % (1.5-5.0) L 04/12/18 16:38 Baso % (Auto) 0.0 % (0.0-3.0) 04/12/18 16:38 Gran # 22.41 (1.4-6.5) H 04/12/18 16:38 Lymph # (Auto) 1.5 (1.2-3.4) 04/12/18 16:38 [place] # (Auto) 0.8 (0.1-0.6) H 04/12/18 16:38 Eos # (Auto) 0.0 (0.0-0.7) 04/12/18 16:38 Baso # (Auto) 0.01 K/mm3 (0.0-2.0) 04/12/18 16:38 Neutrophils % (Manual) 97 % (50.0-70.0) H 04/12/18 13:40 Lymphocytes % (Manual) 1 % (22.0-35.0) L 04/12/18 13:40 Monocytes % (Manual) 2 % (1.0-6.0) 04/12/18 13:40 Platelet Evaluation Normal (NORMAL) 04/12/18 13:40 PT 12.5 SECONDS (9.4-12.5) 04/12/18 16:38 INR 1.09 (0.93-1.08) H 04/12/18 16:38 APTT 31.9 Seconds (25.1-36.5) 04/11/18 04:30 pCO2 35 mm/Hg (35-45) 04/12/18 22:00 pO2 97.0 mm/Hg (80-100) 04/12/18 22:00 HCO3 18.5 mmol/L (21-28) L 04/12/18 22:00 ABG pH 7.33 (7.35-7.45) L 04/12/18 22:00 ABG Total CO2 19.6 mmol.L (22-28) L 04/12/18 22:00 ABG O2 Saturation 99.6 % (95-98) H 04/12/18 22:00 ABG Base Excess -6.6 mmol/L (-2.0-3.0) L 04/12/18 22:00 ABG Potassium 4.8 mmol/L (3.6-5.2) 04/12/18 22:00 VBG pH 7.29 (7.32-7.43) L 04/12/18 19:43 VBG pCO2 45.0 (40-60) 04/12/18 19:43 VBG HCO3 21.6 mmol/l (21-28) 04/12/18 19:43 VBG Total CO2 23.0 mmol.L (22-28) 04/12/18 19:43 VBG O2 Sat (Calc) 97.9 % (40-65) H 04/12/18 19:43 VBG Base Excess -5.0 mmol/L (0.0-2.0) L 04/12/18 19:43 VBG Potassium 5.7 mmol/L (3.6-5.2) H 04/12/18 19:43 Sodium 137.0 mmol/L (132-148) 04/12/18 22:00 Chloride 112.0 mmol/L (98-107) H 04/12/18 22:00 Glucose 214 mg/dl (75-110) H 04/12/18 22:00 Lactate 3.7 mmol/L (0.7-2.1) H 04/12/18 22:00 FiO2 28.0 % 04/12/18 22:00 Sodium 140 mmol/L (132-148) 04/12/18 19:43 Potassium 5.4 mmol/L (3.6-5.0) H 04/12/18 20:45 Chloride 105 mmol/L (98-107) 04/12/18 19:43 Carbon Dioxide 20 mmol/L (21-33) L 04/12/18 19:43 Anion Gap 21 (10-20) H 04/12/18 19:43 BUN 15 mg/dL (7-21) 04/12/18 19:43 Creatinine 0.9 mg/dl (0.8-1.5) 04/12/18 19:43 Est GFR ( Amer) > 60 04/12/18 19:43 Est GFR (Non-Af Amer) > 60 04/12/18 19:43 Random Glucose 187 mg/dL (70-110) H 04/12/18 19:43 Calcium 8.8 mg/dL (8.4-10.5) 04/12/18 19:43 Magnesium 2.0 mg/dL (1.7-2.2) 04/11/18 04:30 Total Bilirubin 0.6 mg/dL (0.2-1.3) 04/12/18 16:38 AST 28 U/L (17-59) 04/12/18 16:38 ALT 25 U/L (7-56) 04/12/18 16:38 Alkaline Phosphatase 56 U/L (38-126) 04/12/18 16:38 Lactate Dehydrogenase 303 U/L (333-699) L 04/11/18 21:56 Total Creatine Kinase 198 U/L (35-230) 04/11/18 21:56 Troponin I < 0.01 ng/mL 04/12/18 16:38 Total Protein 6.2 g/dL (5.8-8.3) 04/12/18 16:38 Albumin 3.4 g/dL (3.0-4.8) 04/12/18 16:38 Globulin 2.8 gm/dL 04/12/18 16:38 Albumin/Globulin Ratio 1.2 (1.1-1.8) 04/12/18 16:38 [id number] 128 mg/dL (83-199) 04/12/18 17:32 Procalcitonin 0.10 NG/ML (0.19-0.49) L 04/12/18 17:32 Arterial Blood Potassium 4.8 mmol/L (3.6-5.2) 04/12/18 22:00 Venous Blood Potassium 5.7 mmol/L (3.6-5.2) H 04/12/18 19:43 HIV 1&2 Antibody Screen Negative (NEGATIVE) 04/12/18 17:32 Blood Type O POSITIVE 04/12/18 08:00 Blood Type Confirm O POSITIVE 04/12/18 08:20 Antibody Screen Negative 04/12/18 08:00 Crossmatch See Detail 04/12/18 08:00 BBK History Checked No verified bt 04/12/18 08:00 - Hospital Course Hospital Course: 32 year old male with past medical history of tobacco abuse and spontaneous pneumothorax on 08/08/2017 who presented to [facility] [place] ED complaining of left sided chest pain. Patient was found to have spontaneous pneumothorax of his left lung. General surgery was consulted and a chest tube was placed and attached to wall suction. Patient was stabilized in ED and transferred to floor. During transport and placement in hospital room patient left sided pneumothorax reoccured. Patient was placed back on wall suction. Patient was stabilized on floor and Cardio Thoracic Surgery was consulted. Patient had CT chest preformed which showed emphysematous changes of his upper and lower lungs bilaterally. CT surgery evaluated the patient and scheduled him for a left thoracotomy. During the procedure the patient underwent left upper lobe lung resection. Patient was returned to floor where he was noted to have increased serosanguinous output from his chest tube. Patient was noted to have dropped 2 grams of hgb post operatively. Patient became tachycardic and hypotensive. Patient was transferred to ICU and given 2 units of pRBC transfusion. While in ICU patient was evaluated and transferred to [facility] on for further observation and management of disease process. - Date & Time of H&P Date of H&P: 04/11/18 Time of H&P: 08:00 Discharge Exam - Head Exam Head Exam: ATRAUMATIC, NORMOCEPHALIC - Additional Findings Additional findings: see progress note from day of discharge Discharge Plan - Follow Up Plan Condition: FAIR Disposition: Trans to Other Acute Care Hosp Referrals: FAMILY PROVIDER,NO [Primary Care Provider] -
== END 2018-04-12 22:45 | disposition short-term general hospital (02) | DRG 75 ==
LOC: ED 04:05 → ERH 06:01 → 3RSO 11:06 → CCU 04-12 15:53
PROVIDERS: ADMIT Internal Medicine; ATTEND Internal Medicine
PROC: 0W9B30Z Drainage of Left Pleural Cavity with Drainage Device, Percutaneous Approach (ICD-10-PCS; 2018-04-11)
PROC: 5A09357 Assistance with Respiratory Ventilation, Less than 24 Consecutive Hours, Continuous Positive Airway Pressure (ICD-10-PCS; 2018-04-12)
PROC: 0BBG0ZZ Excision of Left Upper Lung Lobe, Open Approach (ICD-10-PCS; principal; 2018-04-12 07:30)
DX: J93.83 Other pneumothorax (principal); J43.2 Centrilobular emphysema; J93.82 Other air leak; R00.0 Tachycardia, unspecified; Z87.891 Personal history of nicotine dependence